=== PATIENT | female | born 1940 | race Caucasian/White ===

== ENCOUNTER 2018-04-27 19:56 | Inpatient (IN) | payer MEDICARE, OTHER ==
[2018-04-27 20:23] LABS: % BASOPHILS 0.5 % (0.0-2.0); % EOSINOPHILS 2.5 % (0.0-5.0); % LYMPHOCYTES 30.4 % (20.0-50.0); % MONOCYTES 6.5 % (2.0-10.0); % NEUTROPHILS 60.1 % (40.0-80.0); EOSINOPHILE ABSOLUTE 0.2 Th/cmm (0.1-0.4); HEMATOCRIT 37.4 % (41.0-60); HEMOGLOBIN 12.6 gm/dL (12-16); LYMPHOCYTE ABSOLUTE 2.6 Th/cmm (1.5-3.0); MEAN CORPUSCULAR HGB CONC 33.7 pg (28.0-36.0); MEAN PLATELET VOLUME 6.3 fl; MONOCYTE ABSOLUTE 0.6 Th/cmm (0.3-1.0); NEUTROPHILE ABSOLUTE 5.1 Th/cmm (1.8-8.0); PLATELET COUNT 256 Th/cmm (150-400); RED CELL DISTRIBUTION WIDTH 14.8 % (11.5-20.0); WHITE BLOOD COUNT 8.5 Th/cmm (4.8-10.8)
--- NOTE | 2018-04-27 20:27 | ED Physician Chart ---
ED Chief Complaint/HPI - Patient Information Date Seen:: 04/27/18 Time Seen:: 20:00 Chief Complaint:: Agitation History of Present Illness:: onset x 3 days of agitation and hallucinations; no report of trauma, H/As, S/T, neck pain, C/P, SOB, Abd. Pain, A/N/V/D/C, fever, chills, SIs, or urinary s/s Allergies:: Allergies Allergy/AdvReac Type Severity Reaction Status Date / Time Penicillins Allergy Verified 04/27/18 20:04 tetracycline Allergy Verified 04/27/18 20:04 Vitals:: Vital Signs - 8 hr 04/27/18 20:00 Temp 97.4 F HR 62 BP 129/61 O2 Sat % 97 Historian:: Patient, EMS Review:: Nurse's Note Reviewed, Old Chart Reviewed, EMS run form Reviewed ED Review of Systems - Review of Systems General/Constitutional: No fever, No chills, No weight loss, No weakness, No diaphoresis, No edema, No loss of appetite Skin: No skin lesions, No rash, No bruising Head: No headache, No light-headedness Eyes: No loss of vision, No pain, No diplopia ENT: No earache, No nasal drainage, No sore throat, No tinnitus Neck: No neck pain, No swelling, No thyromegaly, No stiffness, No mass noted Cardio Vascular: No chest pain, No palpitations, No PND, No orthopnea, No edema Pulmonary: No SOB, No cough, No sputum, No wheezing GI: No nausea, No vomiting, No diarrhea, No pain, No melena, No hematochezia, No constipation, No hematemesis G/U: No dysuria, No frequency, No hematuria, No 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, No abnormal vaginal bleed, No contraction Musculoskeletal: No bone or joint pain, No back pain, No muscle pain Endocrine: No polyuria, No polydipsia Psychiatric: Prior psych history, No depression, Anxiety, No suicidal ideation, No homicidal ideation, Auditory hallucination, No visual hallucination Hematopoietic: No bruising, No lymphadenopathy Allergic/Immuno: No urticaria, No angioedema Neurological: No syncope, No focal symptoms, No weakness, No paresthesia, No headache, No seizure, No dizziness, No confusion, No vertigo ED Past Medical History - Past Medical History Obtainable: Yes Past Medical History: HTN, Dyslipidemia, Dementia Family History: HTN Social History: Non Smoker, No Alcohol, No Drug Use, Single, Care Facility Surgical History: None Psychiatricy History: Schizophrenia, Bipolar, Dementia Medication: Reviewed Family Medical History - Family Member Mother History Unknown: Yes ED Physical Exam - Physical Examination General/Constitutional: Awake, Well-developed, well-nourished, Alert, No distress, GCS 15, Non-toxic appearing, Ambulatory Head: Atraumatic Eyes: Lids, conjuctiva normal, PERRL, EOMI Skin: Nl inspection, No rash, No skin lesions, No ecchymosis, Well hydrated, No lymphadenopathy ENMT: External ears, nose nl, TM canals nl, Nasal exam nl, Lips, teeth, gums nl , Oropharynx nl, Tonsils nl Neck: Nontender, Full ROM w/o pain, No JVD, No nuchal rigidity, No bruit, No mass, No stridor Other Neck comments:: supple; no meningeal signs Respiratory: Nl effort/Exclusion, Clear to Auscultation, No Wheeze/Rhonchi/Rales Cardio Vascular: RRR, No murmur, gallop, rubs, NL S1 S2, Carotid/Femoral/Distal pulses equal bilaterally GI: No tenderness/rebounding/guarding, No organomegaly, No hernia, Normal BS's, Nondistended, No mass/bruits, No McBurney tenderness Other GI comments:: no pulsatile masses : No CVA tenderness Extremities: No tenderness or effusion, Full ROM, normal strength in all extremities, No edema, Normal digits & nails Neuro/Psych: Alert/oriented, DTR's symmetric, Normal sensory exam, Normal motor strength, Judgement/insight normal, Mood normal, Normal gait, No focal deficits Other Neuro/Psych comments:: + Psychomotor Agitation; no SIs; + Auditory Hallucinations; Mood/Affect: Labile Misc: Normal back, No paraspinal tenderness ED Labs/Radiology/EKG Results - Lab Results Comments:: unremarkable - EKG Interpretations EKG Time:: 20:25 Rate & Rhythm: 60; NSR Comments:: non-specific st-t changes ED Septic Shock - . Is Septic Shock (SBP<90, OR Lactate>4 mmol\L) present?: No - <6hrs of presentation: Vital Signs: Vital Signs - 8 hr 04/27/18 20:00 Temp 97.4 F HR 62 BP 129/61 O2 Sat % 97 ED Reassessment (Disposition) - Reassessment Reassessment Condition:: Improved - Diagnosis Diagnosis:: Dx: Hyperglycemia; DM; Hyponatremia; Medical Clearance; Psychosis; Hallucinations; Agitation; Schizo-Affective Disorder; Bipolar Disorder - Aftercare/Follow up Instructions Aftercare/Follow-Up Instructions:: Counseled pt regarding lab results/diagnosis & need follow up, Counseled pt & family regarding lab results/diagnosis & need follow up - Patient Disposition Discharge/Transfer:: Acute Care w/in this hosp Admitted to:: [facility] Condition at Disposition:: Stable, Improved
[2018-04-27 20:40] LABS: ACETAMINOPHEN < 10.0 ug/mL (10.0-30.0); ALB/GLOB RATIO 0.8 (1.0-1.8); ALBUMIN 3.4 gm/dL (3.7-5.3); ALKALINE PHOSPHATASE 79 U/L (34-104); ANION GAP 12.5 (7.0-16.0); BILIRUBIN,TOTAL 0.4 mg/dL (0.3-1.0); BUN - UREA NITROGEN 34 mg/dL (7-25); CALCIUM SERUM 9.5 mg/dL (8.6-10.3); CARBON DIOXIDE 25.2 mEq/L (21.0-31.0); CHLORIDE 102 mEq/L (98-107); CHOLESTEROL 129 mg/dL (<200); CREATININE - SERUM 1.4 mg/dL (0.6-1.2); GLUCOSE 229 mg/dL (70-105); HDL -HIGH DENSITY LIPOPROTEIN 28 mg/dL (23-92); POTASSIUM SERUM 4.7 mEq/L (3.5-5.1); SALICYLATES (ASPIRIN) < 25.0 mg/L (30.0-100.0); SGOT 24 U/L (13-39); SGPT/ALT 24 U/L (7-52); SODIUM SERUM 135 mEq/L (136-145); TOTAL PROTEIN,SERUM 7.7 gm/dL (6.0-8.3); TRIGLYCERIDES 216 mg/dL (<150)
[2018-04-27 21:41] VITALS: BP 152/68
[2018-04-27] MEDS ORDERED: Magnesium Hydroxide (MOM) 30 mL UDC PO PRN (22:38)
[2018-04-27] MEDS ORDERED: Guaifenesin DM 10 ML UDC PO PRN (22:38)
[2018-04-27] MEDS ORDERED: Hydrocodone/APAP 5mg/325mg Tab PO PRN (22:38)
[2018-04-28] MEDS: INSULIN ASPART SLIDING SCALE 100 UNITS/ML UNIT SUBQ SCH ×4 (06:36→21:22)
[2018-04-28] MEDS: Pantoprazole 40 mg EC Tab PO SCH (06:46)
[2018-04-28] MEDS ORDERED: Pantoprazole 40 mg EC Tab PO SCH (09:00)
--- NOTE | 2018-04-28 09:19 | History and Physical ---
History of Present Illness - HPI Chief Complaint: Increased in agitation HPI: Patient was send from SNF for evaluation due to Increased in agitation. 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) GI: Report: No Pertinent Hx Psych: Report: Schizophrenia Musculoskeletal: Report: Muscle Atrophy, Weakness, Other (Patient not ambulatory ) Rheumatologic: Report: No pertinent Hx Infectious Disease: Report: No Pertinent Hx Renal/: Report: No Pertinent Hx Endocrine: Report: Diabetes Dermatology: Report: No Pertinent Hx - Past Surgical History Past Surgical History: CABG, Other (Hip surgery) Family Medical History - Family Member Mother History Unknown: Yes Ethnicity: Unknown Living Status: Unknown Social History Smoke: No Alcohol: None Drugs: None Lives: Alf Domestic Violence: Negative - Medications Home Medications: Home Medication Medication Instructions Recorded Type Acetaminophen [Tylenol] 650 mg PO Q6HR PRN 04/27/18 History Aspirin [Aspirin Chewable] 81 mg PO DAILY 04/27/18 History Bisacodyl [Dulcolax 10 Mg Supp] 10 mg RC DAILY PRN 04/27/18 History Clopidogrel [Plavix] 75 mg PO DAILY 04/27/18 History Dextran 70/Hypromellose 1 drop EACH EYE BID 04/27/18 History [Artificial Tears Eye Drops] Docusate Sodium [Colace] 100 mg PO BID 04/27/18 History Escitalopram Oxalate [Lexapro] 10 mg PO DAILY 04/27/18 History Gabapentin [Neurontin*] 300 mg PO DAILY 04/27/18 History Glipizide [Glucotrol] 5 mg PO BID 04/27/18 History Guaifenesin DM [Robitussin DM] 10 ml PO Q4HR PRN 04/27/18 History Hydrocodone/Acetaminophen [[place] 1 tab PO Q4HR PRN 04/27/18 History 325 mg-5 mg*] Insulin Aspart Sliding Scale See Protocol SUBQ ACHS 04/27/18 History [NovoLOG INSULIN SLIDING SCALE] Insulin Glargine, Recombinan 20 unit SQ Q12HR 04/27/18 History [Lantus] Magnesium Hydroxide [Milk of 30 ml PO DAILY PRN 04/27/18 History Magnesia] Metoprolol Tartrate 25 mg PO Q12HR 04/27/18 History Multivitamin w/ Minerals 1 tab PO DAILY 04/27/18 History [Theragran M] Nitroglycerin [Nitro-Dur] 1 each TD DAILY 04/27/18 History Nitroglycerin [Nitrostat] 0.4 mg SL Q5MIN PRN 04/27/18 History Pantoprazole [Protonix] 40 mg PO DAILY 04/27/18 History Ramelteon [Rozerem] 8 mg PO HS 04/27/18 History Simvastatin [Zocor*] 20 mg PO HS 04/27/18 History busPIRone [Buspar] 5 mg PO TID 04/27/18 History - Allergies Allergies/Adverse Reactions: Allergies Allergy/AdvReac Type Severity Reaction Status Date / Time Penicillins Allergy Verified 04/27/18 20:04 tetracycline Allergy Verified 04/27/18 20:04 Review of Systems - Review of Systems Constitutional: Report: No Significant Eyes: Report: No Significant ENT: Report: No Significant Respiratory: Report: No Significant Cardiovascular: Report: No Significant Gastrointestinal: Report: No Significant Genitourinary: Report: No Significant Skin: Report: No Significant Neurological: Report: Weakness Physical Exam - Physical Exam HEENT: Report: Ears Nose Throat within normal limits Neck: Report: Within normal limits Cardiovascular Systems: Report: Regular, Rate and Rhythm Respiratory: Report: Breath Sounds are within normal limits Abdomen: Report: Non-tender to palpation Back: Report: Inspection of back is within normal limits. Extremities: Report: Non-tender to palpation., Other (Muscle weakness, non ambulatory) Skin: Report: Color of skin is within normal limits Neuro/Psych: Report: Disoriented to name time or place, Depressed affect - Lab Results All Lab Results last 24 hours: Laboratory Results - last 24 hr 04/27/18 04/27/18 04/27/18 20:18 20:18 20:18 WBC 8.5 RBC 4.20 Hgb 12.6 Hct 37.4 L MCV 89.0 MCH 30.0 MCHC Differential 33.7 RDW 14.8 Plt Count 256 MPV 6.3 Neutrophils % 60.1 Lymphocytes % 30.4 Monocytes % 6.5 Eosinophils % 2.5 Basophils % 0.5 Sodium 135 L Potassium 4.7 Chloride 102 Carbon Dioxide 25.2 Anion Gap 12.5 BUN 34 H Creatinine 1.4 H Est GFR ( Amer) TNP Est GFR (Non-Af Amer) TNP BUN/Creatinine Ratio 24.3 Glucose 229 H Calcium 9.5 Total Bilirubin 0.4 AST 24 ALT 24 Alkaline Phosphatase 79 Troponin I Total Protein 7.7 Albumin 3.4 L Globulin 4.3 Albumin/Globulin Ratio 0.8 L Triglycerides 216 H Cholesterol 129 LDL Cholesterol Direct 32 L HDL Cholesterol 28 TSH 2.50 Salicylates < 25.0 L Acetaminophen < 10.0 L Ethyl Alcohol < 10 04/27/18 20:18 WBC RBC Hgb Hct MCV MCH MCHC Differential RDW Plt Count MPV Neutrophils % Lymphocytes % Monocytes % Eosinophils % Basophils % Sodium Potassium Chloride Carbon Dioxide Anion Gap BUN Creatinine Est GFR ( Amer) Est GFR (Non-Af Amer) BUN/Creatinine Ratio Glucose Calcium Total Bilirubin AST ALT Alkaline Phosphatase Troponin I < 0.01 L Total Protein Albumin Globulin Albumin/Globulin Ratio Triglycerides Cholesterol LDL Cholesterol Direct HDL Cholesterol TSH Salicylates Acetaminophen Ethyl Alcohol - Assessment Assessment: Patient is awake, alert, calm, in no acute distress. Dx: increased in agitation DM, HTN, Dislipemia, Dementia, Schizophenia. - Plan Plan: Patient under psychiatry care, continue with SNF meds. Will continue to monitor.
[2018-04-28] MEDS: Multivitamin w/ Minerals Tab PO SCH (10:07)
[2018-04-28] MEDS: Insulin Detemir 100 units/mL 10mL Vial SUBQ SCH ×2 (11:27→22:11)
[2018-04-28] MEDS: Aspirin 81mg Chewable Tab PO SCH (11:31)
[2018-04-28] MEDS: Polyvinyl Alcohol Ophth Soln 15 mL Bottle EACH EYE SCH (11:31)
[2018-04-28] MEDS: Nitroglycerin 0.1 mg/hr Tdm TD SCH (11:48)
[2018-04-28 17:32] LABS: A1C % 7.4 % (4.0-6.0)
[2018-04-28] MEDS ORDERED: RAMELTEON 8 MG PO SCH (21:00)
--- NOTE | 2018-04-29 02:31 | Psychosocial Evaluation ---
DATE OF SERVICE: 04/28/2018 IDENTIFYING DATA: The patient is a 77-year-old woman, resident of [facility] in [place]. Information obtained by directly interviewing the patient as well as reviewing the admission papers and they are reliable. JUSTIFICATION FOR HOSPITALIZATION: The patient is admitted here on a voluntary basis in view of her depression and agitation. CHIEF COMPLAINT: "I need some help." HISTORY OF PRESENT ILLNESS: This is the first psychiatric hospitalization to the [facility] for this 77-year-old, who is reported to have been feeling depressed and is being treated with the Lexapro on an outpatient basis. The patient is reported to have been getting easily agitated and aggressive and hence the patient could not be contained at a lower level of care and hence the patient has been transferred over here for further stabilization. PAST PSYCHIATRIC HISTORY: The patient denies any prior psychiatric hospitalization. MEDICAL HISTORY: Physical examination is requested by Dr. Crump and is noted to be significant for patient having high blood pressure and diabetes mellitus and the patient has a history of coronary artery bypass surgery. ALLERGIES: No allergies to medications are noted. SOCIAL HISTORY: The patient is a resident of the [facility]. SUBSTANCE ABUSE HISTORY: None. PHYSICAL OR SEXUAL ABUSE HISTORY: None. LEGAL PROBLEMS: None at this time. STRENGTH AND ASSETS: The patient is motivated. MENTAL STATUS EXAMINATION: The patient is a 77-year-old woman looking her stated age, superficially cooperative. Eye contact is poor. Mood is noted to be irritable. Affect is constricted. Insight and judgment at this time are noted to be still impaired. Impulse control is noted to be limited. Coping skills are noted to be limited. The patient has been having difficult time to cope with the stress. The patient has been stay downplaying her agitated behavior. The patient states that she could not remember. The patient's short term memory is noted to be poor. Long-term memory seems to be fair. The patient is stating that she has supportive family and she has been trying to reach them. The patient is denying any auditory hallucinations. No delusions are noted at this time. DIAGNOSTIC IMPRESSION: AXIS I: Major depressive disorder, recurrent and moderate. AXIS II: None. AXIS III: As per Dr. Crump. IMMEDIATE TREATMENT PLAN: The patient is going to be continued on the buspirone and Lexapro and the patient is going to be followed up. Once stabilized, the patient is going to be discharged to self to be followed up on an outpatient basis. JOB# [id number]
[2018-04-29] MEDS: INSULIN ASPART SLIDING SCALE 100 UNITS/ML UNIT SUBQ SCH ×4 (06:43→21:58)
[2018-04-29] MEDS: Pantoprazole 40 mg EC Tab PO SCH (06:51)
--- NOTE | 2018-04-29 08:28 | General Progress Note ---
Subjective - Review of Systems Service Date: 04/29/18 Subjective: I am fine Objective - Results Result Diagrams: 04/27/18 20:18 04/27/18 20:18 Recent Labs: Laboratory Last Values WBC 8.5 Th/cmm (4.8-10.8) 04/27/18 20:18 RBC 4.20 Mil/cmm (3.80-5.20) 04/27/18 20:18 Hgb 12.6 gm/dL (12-16) 04/27/18 20:18 Hct 37.4 % (41.0-60) L 04/27/18 20:18 MCV 89.0 fl (81-100) 04/27/18 20:18 MCH 30.0 pg (27.0-31.0) 04/27/18 20: MCHC Differential 33.7 pg (28.0-36.0) 04/27/18 20:18 RDW 14.8 % (11.5-20.0) 04/27/18 20:18 Plt Count 256 Th/cmm (150-400) 04/27/18 20:18 MPV 6.3 fl 04/27/18 20:18 Neutrophils % 60.1 % (40.0-80.0) 04/27/18 20:18 Lymphocytes % 30.4 % (20.0-50.0) 04/27/18 20:18 Monocytes % 6.5 % (2.0-10.0) 04/27/18 20:18 Eosinophils % 2.5 % (0.0-5.0) 04/27/18 20:18 Basophils % 0.5 % (0.0-2.0) 04/27/18 20:18 Sodium 135 mEq/L (136-145) L 04/27/18 20:18 Potassium 4.7 mEq/L (3.5-5.1) 04/27/18 20:18 Chloride 102 mEq/L (98-107) 04/27/18 20:18 Carbon Dioxide 25.2 mEq/L (21.0-31.0) 04/27/18 20:18 Anion Gap 12.5 (7.0-16.0) 04/27/18 20:18 BUN 34 mg/dL (7-25) H 04/27/18 20:18 Creatinine 1.4 mg/dL (0.6-1.2) H 04/27/18 20:18 Est GFR ( Amer) TNP 04/27/18 20:18 Est GFR (Non-Af Amer) TNP 04/27/18 20:18 BUN/Creatinine Ratio 24.3 04/27/18 20:18 Glucose 229 mg/dL (70-105) H 04/27/18 20:18 POC Glucose 52 MG/DL (70 - 105) L 04/29/18 07:10 Hemoglobin A1c % 7.4 % (4.0-6.0) H 04/27/18 20:18 Calcium 9.5 mg/dL (8.6-10.3) 04/27/18 20:18 Total Bilirubin 0.4 mg/dL (0.3-1.0) 04/27/18 20:18 AST 24 U/L (13-39) 04/27/18 20:18 ALT 24 U/L (7-52) 04/27/18 20:18 Alkaline Phosphatase 79 U/L (34-104) 04/27/18 20:18 Troponin I < 0.01 ng/mL (0.01-0.05) L 04/27/18 20:18 Total Protein 7.7 gm/dL (6.0-8.3) 04/27/18 20:18 Albumin 3.4 gm/dL (3.7-5.3) L 04/27/18 20:18 Globulin 4.3 gm/dL 04/27/18 20:18 Albumin/Globulin Ratio 0.8 (1.0-1.8) L 04/27/18 20:18 Triglycerides 216 mg/dL (<150) H 04/27/18 20:18 Cholesterol 129 mg/dL (<200) 04/27/18 20:18 LDL Cholesterol Direct 32 mg/dL (75-193) L 04/27/18 20:18 HDL Cholesterol 28 mg/dL (23-92) 04/27/18 20:18 TSH 2.50 uIU/ml (0.34-5.60) 04/27/18 20:18 Salicylates < 25.0 mg/L (30.0-100.0) L 04/27/18 20:18 Acetaminophen < 10.0 ug/mL (10.0-30.0) L 04/27/18 20:18 Ethyl Alcohol < 10 mg/dL (0-10) 04/27/18 20:18 RPR NONREACTIVE (NONREACTIVE) 04/27/18 20:18 - Physical Exam Vitals and I&O: Vital Signs Temp 97.8 F 04/29/18 04:45 Pulse 70 04/29/18 04:45 Resp 19 04/29/18 04:45 BP 128/73 04/29/18 04:45 Pulse Ox 84 04/29/18 04:45 Intake & Output 04/28/18 04/29/18 04/29/18 18:59 06:59 18:59 Intake Total 0 480 Balance 0 480 Intake: Oral 0 480 Other: # Voids 2 2 # Bowel Movements 0 Stool Characteristics Formed Active Medications: Current Medications Acetaminophen (Tylenol) 650 mg PO Q6HR PRN PRN Reason: Pain or Fever >101 Stop: 06/26/18 22:37 Acetaminophen/Hydrocodone Bitart ([place] 5mg/325mg) 1 tab PO Q4HR PRN PRN Reason: Pain (Severe) Stop: 06/26/18 22:37 Artificial Tears (Artificial Tears Ophth Soln) 1 drop EACH EYE BID [facility] Stop: 06/27/18 08:59 Last Admin: 04/28/18 11:31 Dose: 1 drop Aspirin (Aspirin Chewable) 81 mg PO DAILY [facility] Stop: 06/27/18 08:59 Last Admin: 04/28/18 11:31 Dose: 81 mg Bisacodyl (Dulcolax 10 Mg Supp) 10 mg RC DAILY PRN PRN Reason: Constipation Stop: 06/26/18 22:37 Buspirone HCl (Buspar) 5 mg PO TID [facility]; Protocol Stop: 06/27/18 08:59 Last Admin: 04/28/18 21:15 Dose: 5 mg Clopidogrel Bisulfate (Plavix) 75 mg PO DAILY [facility] Stop: 06/27/18 08:59 Last Admin: 04/28/18 10:08 Dose: 75 mg Docusate Sodium (Colace) 100 mg PO BID [facility] Stop: 06/27/18 08:59 Last Admin: 04/28/18 10:07 Dose: 100 mg Escitalopram Oxalate (Lexapro) 10 mg PO DAILY [facility]; Protocol Stop: 06/27/18 08:59 Last Admin: 04/28/18 10:07 Dose: 10 mg Gabapentin (Neurontin) 300 mg PO DAILY [facility] Stop: 06/27/18 08:59 Last Admin: 04/28/18 10:07 Dose: 300 mg Glipizide (Glucotrol) 5 mg PO BID [facility] Stop: 06/27/18 08:59 Last Admin: 04/28/18 18:05 Dose: 5 mg Guaifenesin/Dextromethorphan (Robitussin Dm) 10 ml PO Q4HR PRN PRN Reason: Cough Stop: 06/26/18 22:37 Insulin Aspart (Novolog Insulin Sliding Scale) 0 units SUBQ ACHS [facility]; Protocol Stop: 06/27/18 07:29 Last Admin: 04/29/18 06:43 Dose: Not Given Insulin Detemir (Levemir Insulin) 20 units SUBQ Q12HR [facility] Stop: 06/27/18 08:59 Last Admin: 04/28/18 22:11 Dose: Not Given Lorazepam (Ativan) 0.5 mg PO Q4HR PRN; Protocol PRN Reason: Anxiety/agitation Stop: 05/28/18 00:04 Magnesium Hydroxide (Milk Of Magnesia) 30 ml PO DAILY PRN PRN Reason: Constipation Stop: 06/26/18 22:37 Metoprolol Tartrate (Lopressor) 25 mg PO Q12HR [facility] Stop: 06/27/18 08:59 Last Admin: 04/28/18 21:13 Dose: 25 mg Miscellaneous (Ramelteon [Rozerem]) 8 mg PO HS [facility] Stop: 06/27/18 20:59 Nitroglycerin (Nitrostat) 0.4 mg SL Q5MIN PRN PRN Reason: Chest Pain Stop: 06/26/18 22:37 Nitroglycerin (Transderm-Nitro) 1 patch TD DAILY [facility] Stop: 06/27/18 08:59 Last Admin: 04/28/18 11:48 Dose: Not Given Pantoprazole Sodium (Protonix) 40 mg PO QDAC [facility] Stop: 06/27/18 07:29 Last Admin: 04/29/18 06:51 Dose: 40 mg Simvastatin (Zocor) 20 mg PO [facility]; Protocol Stop: 06/27/18 20:59 Last Admin: 04/28/18 21:13 Dose: 20 mg Zolpidem Tartrate (Ambien) 5 mg PO HS PRN PRN Reason: Insomnia Stop: 06/26/18 22:28 General: Alert, No acute distress HEENT: Atraumatic Neck: Supple Cardiovascular: Regular rate Lungs: Clear to auscultation Abdomen: Bowel sounds, Soft Extremities: Other (No edema) Neurological: Other (Non ambulatory) Skin: Other (Warm and dry) Psych/Mental Status: Other (Calm, confused, not oriented) Assessment/Plan - Assessment Assessment: Patient is awake, alert, calm, in no acute distress. Dx: increased in agitation DM, CKD, HTN, Dislipemia, Dementia, Schizophenia. - Plan Plan: Patient under psychiatry care, continue with SNF meds. Will continue to monitor. Nutritional Asmnt/Malnutr-PDOC - Dietary Evaluation Malnutrition Findings (Please click <Entered> for more info): Nutritional Asmnt/Malnutrition Start: 04/28/18 15: 10 Text: Status: Complete Freq: Protocol: Document 04/28/18 15:14 [id number] (Rec: 04/28/18 15:42 TATUM [id number]) Nutritional Asmnt/Malnutrition Patient General Information Nutritional Screening High Risk Diagnosis psychosis Pertinent Medical Hx/Surgical Hx CAD, CHF, HTN, dementia, schizophrenia, DM, muscle atrophy, weakness Subjective Information BS 229 at admission noted. Per nurse, pt consumed about 80% of lunch today. Current Diet Order/ Nutrition Support CCHO, low sodium, mech chopped Pertinent Medications colace, glucotrol, novolog, levemir, protonix Pertinent Labs 04/27 Na 135, BUN 34, Cr 1.4, glucose 229 Nutritional Hx/Data Height 1.78 m Height (Calculated Centimeters) 177.8 Current Weight (lbs) 112.037 kg Weight (Calculated Kilograms) 112.0 Weight (Calculated Grams) 383916.3 [place] Body Weight 150 Body Mass Index (BMI) 35.4 Weight Status Obese GI Symptoms GI Symptoms None Last BM none Difficult in: None Skin Integrity/Comment: intact Estimated Nutritional Goals BEE in Kcals: Adj wt of IBW Calories/Kcals/Kg 23-27 Kcals Calculated [id number] Protein: Adj wt of IBW Protein g/k Protein Calculated 79 Fluid: ml 1794-2133ml (1ml/kcal) Nutritional Problem 1. Problem Problem altered nutrition related lab Etiology hx of DM Signs/Symptoms: glucose 229 Malnutrition Alert Is there a minimum of two criteria No selected? Query Text:Check all the applicable criteria. A minimum of two criteria are recommended for diagnosis of either severe or non-severe malnutrition. Malnutrition Related to Morbid Obesity Malnutrition related to morbid obesity No Intervention/Recommendation Comments 1. Continue with low sodium [facility] soft chopped diet as ordered. 2. Monitor PO intake, wt, labs and skin integrity 3. F/U as moderate risk in 3-5 days, 05/01-05/03 Expected Outcomes/Goals Expected Outcomes/Goals 1. PO intake to meet at least 75% of nutritional needs. 2. Wt stability, skin to remain intact, labs to approach WNL.
[2018-04-29] MEDS: Aspirin 81mg Chewable Tab PO SCH (09:35)
[2018-04-29] MEDS: Polyvinyl Alcohol Ophth Soln 15 mL Bottle EACH EYE SCH ×2 (09:35→16:32)
[2018-04-29] MEDS: Multivitamin w/ Minerals Tab PO SCH (09:35)
[2018-04-29] MEDS: Nitroglycerin 0.1 mg/hr Tdm TD SCH (09:37)
[2018-04-29] MEDS: Insulin Detemir 100 units/mL 10mL Vial SUBQ SCH ×2 (09:38→21:58)
--- NOTE | 2018-04-30 02:10 | Progress Notes ---
DATE: 04/29/2018 SUBJECTIVE: Staff was spoken to. The patient is interviewed. Mood is noted to be anxious and irritable. Affect is constricted. Coping skills are noted to be poor. The patient is isolated and withdrawn. No side effect to the medications are noted. The patient is still depressed. She is reluctant to participate in any of the groups. ASSESSMENT: The patient is still depressed. PLAN: Continue the patient with Lexapro and follow the patient with supportive therapy. JOB# [id number]
[2018-04-30] MEDS: Pantoprazole 40 mg EC Tab PO SCH (06:39)
[2018-04-30] MEDS: Aspirin 81mg Chewable Tab PO SCH (09:04)
[2018-04-30] MEDS: Multivitamin w/ Minerals Tab PO SCH (09:05)
[2018-04-30] MEDS: Insulin Detemir 100 units/mL 10mL Vial SUBQ SCH ×2 (09:25→20:57)
[2018-04-30] MEDS: INSULIN ASPART SLIDING SCALE 100 UNITS/ML UNIT SUBQ SCH ×4 (09:36→20:55)
[2018-04-30] MEDS: Polyvinyl Alcohol Ophth Soln 15 mL Bottle EACH EYE SCH ×2 (09:36→16:24)
[2018-04-30] MEDS: Nitroglycerin 0.1 mg/hr Tdm TD SCH (09:38)
--- NOTE | 2018-04-30 13:46 | Progress Notes ---
DATE: 04/30/2018 SUBJECTIVE: Staff was spoken to. The patient is interviewed. Mood is noted to be irritable. Affect is constricted. Coping skills at this time are noted to be very poor. The patient has been having difficult time to cope with the stress. No side effects to the medications are noted at this time. The patient is getting easily frustrated. The patient is currently on Lexapro 10 mg and has been able to tolerate the medication. Sleep is noted to be poor. Appetite is noted to be fair. ASSESSMENT: The patient is still depressed. PLAN: To continue the patient with the supportive therapy and I encouraged the patient to verbalize the concerns rather than to act out. JOB# [id number]
--- NOTE | 2018-04-30 13:50 | General Progress Note ---
Subjective - Review of Systems Service Date: 04/30/18 Subjective: I am fine Objective - Results Result Diagrams: 04/27/18 20:18 04/27/18 20:18 Recent Labs: Laboratory Last Values WBC 8.5 Th/cmm (4.8-10.8) 04/27/18 20:18 RBC 4.20 Mil/cmm (3.80-5.20) 04/27/18 20:18 Hgb 12.6 gm/dL (12-16) 04/27/18 20:18 Hct 37.4 % (41.0-60) L 04/27/18 20:18 MCV 89.0 fl (81-100) 04/27/18 20:18 MCH 30.0 pg (27.0-31.0) 04/27/18 20: MCHC Differential 33.7 pg (28.0-36.0) 04/27/18 20:18 RDW 14.8 % (11.5-20.0) 04/27/18 20:18 Plt Count 256 Th/cmm (150-400) 04/27/18 20:18 MPV 6.3 fl 04/27/18 20:18 Neutrophils % 60.1 % (40.0-80.0) 04/27/18 20:18 Lymphocytes % 30.4 % (20.0-50.0) 04/27/18 20:18 Monocytes % 6.5 % (2.0-10.0) 04/27/18 20:18 Eosinophils % 2.5 % (0.0-5.0) 04/27/18 20:18 Basophils % 0.5 % (0.0-2.0) 04/27/18 20:18 Sodium 135 mEq/L (136-145) L 04/27/18 20:18 Potassium 4.7 mEq/L (3.5-5.1) 04/27/18 20:18 Chloride 102 mEq/L (98-107) 04/27/18 20:18 Carbon Dioxide 25.2 mEq/L (21.0-31.0) 04/27/18 20:18 Anion Gap 12.5 (7.0-16.0) 04/27/18 20:18 BUN 34 mg/dL (7-25) H 04/27/18 20:18 Creatinine 1.4 mg/dL (0.6-1.2) H 04/27/18 20:18 Est GFR ( Amer) TNP 04/27/18 20:18 Est GFR (Non-Af Amer) TNP 04/27/18 20:18 BUN/Creatinine Ratio 24.3 04/27/18 20:18 Glucose 229 mg/dL (70-105) H 04/27/18 20:18 POC Glucose 202 MG/DL (70 - 105) H 04/30/18 11:18 Hemoglobin A1c % 7.4 % (4.0-6.0) H 04/27/18 20:18 Calcium 9.5 mg/dL (8.6-10.3) 04/27/18 20:18 Total Bilirubin 0.4 mg/dL (0.3-1.0) 04/27/18 20:18 AST 24 U/L (13-39) 04/27/18 20:18 ALT 24 U/L (7-52) 04/27/18 20:18 Alkaline Phosphatase 79 U/L (34-104) 04/27/18 20:18 Troponin I < 0.01 ng/mL (0.01-0.05) L 04/27/18 20:18 Total Protein 7.7 gm/dL (6.0-8.3) 04/27/18 20:18 Albumin 3.4 gm/dL (3.7-5.3) L 04/27/18 20:18 Globulin 4.3 gm/dL 04/27/18 20:18 Albumin/Globulin Ratio 0.8 (1.0-1.8) L 04/27/18 20:18 Triglycerides 216 mg/dL (<150) H 04/27/18 20:18 Cholesterol 129 mg/dL (<200) 04/27/18 20:18 LDL Cholesterol Direct 32 mg/dL (75-193) L 04/27/18 20:18 HDL Cholesterol 28 mg/dL (23-92) 04/27/18 20:18 TSH 2.50 uIU/ml (0.34-5.60) 04/27/18 20:18 Salicylates < 25.0 mg/L (30.0-100.0) L 04/27/18 20:18 Acetaminophen < 10.0 ug/mL (10.0-30.0) L 04/27/18 20:18 Ethyl Alcohol < 10 mg/dL (0-10) 04/27/18 20:18 RPR NONREACTIVE (NONREACTIVE) 04/27/18 20:18 - Physical Exam Vitals and I&O: Vital Signs Temp 98.2 F 04/30/18 04:29 Pulse 60 04/30/18 09:38 Resp 18 04/30/18 04:29 BP 139/61 04/30/18 09:38 Pulse Ox 90 04/30/18 04:29 Intake & Output 04/29/18 04/30/18 04/30/18 18:59 06:59 18:59 Intake Total 480 Balance 480 Intake: Oral 480 Other: # Voids 2 Active Medications: Current Medications Acetaminophen (Tylenol) 650 mg PO Q6HR PRN PRN Reason: Pain or Fever >101 Stop: 06/26/18 22:37 Acetaminophen/Hydrocodone Bitart ([place] 5mg/325mg) 1 tab PO Q4HR PRN PRN Reason: Pain (Severe) Stop: 06/26/18 22:37 Artificial Tears (Artificial Tears Ophth Soln) 1 drop EACH EYE BID [facility] Stop: 06/27/18 08:59 Last Admin: 04/30/18 09:36 Dose: 1 drop Aspirin (Aspirin Chewable) 81 mg PO DAILY [facility] Stop: 06/27/18 08:59 Last Admin: 04/30/18 09:04 Dose: 81 mg Bisacodyl (Dulcolax 10 Mg Supp) 10 mg RC DAILY PRN PRN Reason: Constipation Stop: 06/26/18 22:37 Buspirone HCl (Buspar) 5 mg PO TID [facility]; Protocol Stop: 06/27/18 08:59 Last Admin: 04/30/18 13:10 Dose: 5 mg Clopidogrel Bisulfate (Plavix) 75 mg PO DAILY [facility] Stop: 06/27/18 08:59 Last Admin: 04/30/18 09:04 Dose: 75 mg Docusate Sodium (Colace) 100 mg PO BID [facility] Stop: 06/27/18 08:59 Last Admin: 04/30/18 09:04 Dose: 100 mg Escitalopram Oxalate (Lexapro) 10 mg PO DAILY [facility]; Protocol Stop: 06/27/18 08:59 Last Admin: 04/30/18 09:04 Dose: 10 mg Gabapentin (Neurontin) 300 mg PO DAILY [facility] Stop: 06/27/18 08:59 Last Admin: 04/30/18 09:03 Dose: 300 mg Glipizide (Glucotrol) 5 mg PO BID [facility] Stop: 06/27/18 08:59 Last Admin: 04/30/18 09:04 Dose: 5 mg Guaifenesin/Dextromethorphan (Robitussin Dm) 10 ml PO Q4HR PRN PRN Reason: Cough Stop: 06/26/18 22:37 Insulin Aspart (Novolog Insulin Sliding Scale) 0 units SUBQ ACHS [facility]; Protocol Stop: 06/27/18 07:29 Last Admin: 04/30/18 11:30 Dose: 4 units Insulin Detemir (Levemir Insulin) 20 units SUBQ Q12HR [facility] Stop: 06/27/18 08:59 Last Admin: 04/30/18 09:25 Dose: 20 unit Lorazepam (Ativan) 0.5 mg PO Q4HR PRN; Protocol PRN Reason: Anxiety/agitation Stop: 05/28/18 00:04 Magnesium Hydroxide (Milk Of Magnesia) 30 ml PO DAILY PRN PRN Reason: Constipation Stop: 06/26/18 22:37 Metoprolol Tartrate (Lopressor) 25 mg PO Q12HR [facility] Stop: 06/27/18 08:59 Last Admin: 04/30/18 09:07 Dose: 25 mg Miscellaneous (Ramelteon [Rozerem]) 8 mg PO HS [facility] Stop: 06/27/18 20:59 Nitroglycerin (Nitrostat) 0.4 mg SL Q5MIN PRN PRN Reason: Chest Pain Stop: 06/26/18 22:37 Nitroglycerin (Transderm-Nitro) 1 patch TD DAILY [facility] Stop: 06/27/18 08:59 Last Admin: 04/30/18 09:38 Dose: 1 patch Pantoprazole Sodium (Protonix) 40 mg PO QDAC [facility] Stop: 06/27/18 07:29 Last Admin: 04/30/18 06:39 Dose: 40 mg Simvastatin (Zocor) 20 mg PO HS [facility]; Protocol Stop: 06/27/18 20:59 Last Admin: 04/29/18 21:57 Dose: 20 mg Zolpidem Tartrate (Ambien) 5 mg PO HS PRN PRN Reason: Insomnia Stop: 06/26/18 22:28 General: Alert, No acute distress HEENT: Atraumatic Neck: Supple Cardiovascular: Regular rate Lungs: Clear to auscultation Abdomen: Bowel sounds, Soft Extremities: Other (No edema) Neurological: Other (Non ambulatory) Skin: Other (Warm and dry) Psych/Mental Status: Other (Calm, confused, not oriented) Assessment/Plan - Assessment Assessment: Patient is awake, alert, calm, in no acute distress. Dx: increased in agitation DM, CKD, HTN, Dislipemia, Dementia, Schizophenia. - Plan Plan: Patient under psychiatry care, continue with SNF meds. Will continue to monitor. Nutritional Asmnt/Malnutr-PDOC - Dietary Evaluation Malnutrition Findings (Please click <Entered> for more info): Nutritional Asmnt/Malnutrition Start: 04/28/18 15: 10 Text: Status: Complete Freq: Protocol: Document 04/28/18 15:14 [email or web address] (Rec: 04/28/18 15:42 [id number] [id number]) Nutritional Asmnt/Malnutrition Patient General Information Nutritional Screening High Risk Diagnosis psychosis Pertinent Medical Hx/Surgical Hx CAD, CHF, HTN, dementia, schizophrenia, DM, muscle atrophy, weakness Subjective Information BS 229 at admission noted. Per nurse, pt consumed about 80% of lunch today. Current Diet Order/ Nutrition Support CCHO, low sodium, mech chopped Pertinent Medications colace, glucotrol, novolog, levemir, protonix Pertinent Labs 04/27 Na 135, BUN 34, Cr 1.4, glucose 229 Nutritional Hx/Data Height 1.78 m Height (Calculated Centimeters) 177.8 Current Weight (lbs) 112.037 kg Weight (Calculated Kilograms) 112.0 Weight (Calculated Grams) 264388.3 [place] Body Weight 150 Body Mass Index (BMI) 35.4 Weight Status Obese GI Symptoms GI Symptoms None Last BM none Difficult in: None Skin Integrity/Comment: intact Estimated Nutritional Goals BEE in Kcals: Adj wt of IBW Calories/Kcals/Kg 23-27 Kcals Calculated 5427-0324 Protein: Adj wt of IBW Protein g/k Protein Calculated 79 Fluid: ml 1794-2133ml (1ml/kcal) Nutritional Problem 1. Problem Problem altered nutrition related lab Etiology hx of DM Signs/Symptoms: glucose 229 Malnutrition Alert Is there a minimum of two criteria No selected? Query Text:Check all the applicable criteria. A minimum of two criteria are recommended for diagnosis of either severe or non-severe malnutrition. Malnutrition Related to Morbid Obesity Malnutrition related to morbid obesity No Intervention/Recommendation Comments 1. Continue with low sodium [facility] soft chopped diet as ordered. 2. Monitor PO intake, wt, labs and skin integrity 3. F/U as moderate risk in 3-5 days, 05/01-05/03 Expected Outcomes/Goals Expected Outcomes/Goals 1. PO intake to meet at least 75% of nutritional needs. 2. Wt stability, skin to remain intact, labs to approach WNL.
--- NOTE | 2018-05-01 00:25 | Consultation ---
DATE OF CONSULTATION: 04/29/2018 REFERRING PHYSICIAN: Philip Gates M.D. TYPE OF CONSULTATION: Psychology. HISTORY OF PRESENT ILLNESS: The patient is a 77-year-old female. The patient is a resident of [facility] in [place]. The following is by record review and by the patient's self report. The patient is being admitted due to depression as well as agitation. Upon interview, the patient admits that she is depressed and is requesting help. The staff at the patient's facility report that she had been getting easily agitated and aggressive and complained of worsening depression. Therefore she was transferred here for stabilization. The patient denied any suicidal ideation, plan or intention; however, this needs further evaluation. There may be passive suicidal ideation present. PAST MEDICAL HISTORY: Please see history and physical by Dr. Crump. PAST PSYCHIATRIC HISTORY: The patient has no other prior psychiatric hospitalizations. The patient has a history of depression and is being treated by a psychiatrist at her group home facility. The patient had been treated with Lexapro in the past. ALLERGIES: No known drug allergies. SUBSTANCE ABUSE HISTORY: The patient denied any history. PSYCHOSOCIAL HISTORY: The patient did not answer questions about occupational or educational history or restorationist affiliation. The patient denied any history of physical or sexual abuse. The patient denies any current legal problems. The patient offered information about her family relationships and states she has good support and that they are very involved in her care. She is requesting that the staff contact her family. The patient is a resident of [facility] in [place]. The patient wishes to return to her facility. MENTAL STATUS EXAMINATION: The patient appears to be her stated age. The patient's attitude is mostly cooperative. Eye contact is poor. Speech is slow and delayed. Mood is irritable and depressed. Affect is constricted. Thought process shows to be confused. The patient denied any auditory or visual hallucinations. The patient denies any delusions. The patient has been redirectable on the unit according to staff here. The patient has had a few episodes of becoming easily agitated. Impulse control is limited. Concentration is poor. The patient's short term memory is impaired. Long-term memory seems to be fair. The patient's sensorium is alert and oriented to person and place. The patient did not participate in the interpretation of proverbs. The patient requested that her family be contacted and states that she needs her family here. Insight is fair to poor. Judgement is compromised. DIAGNOSTIC IMPRESSION: AXIS I: Major depressive disorder, recurrent, moderate. AXIS II: Deferred. AXIS III: Please see history and physical by Dr. Crump. TREATMENT PLAN: The patient has been seen by Dr. Gates for psychiatric evaluation and for the management of the patient's psychotropic medications. The patient is being continued on Buspirone and Lexapro according to the medical record. We will provide supportive psychotherapy to include coping strategies for phase of life issues. We will provide cognitive behavioral therapy to reduce the patient's depression. We will provide motivational enhancement for the patient to become compliant and stay compliant with all aspects of her care and treatment. We will continue to provide supportive therapy throughout the patient's hospital stay. We will also provide adjustment strategies for the patient to successfully adjust to her long-term care environment. We will encourage the patient to verbalize her concerns versus becoming agitated. We will encourage the patient to increase her ability for emotional and self regulation. Thank you Dr. Gates for this consult and the opportunity to participate with you in this patient's care. JOB# [id number] [email or web address]
[2018-05-01] MEDS: INSULIN ASPART SLIDING SCALE 100 UNITS/ML UNIT SUBQ SCH ×4 (06:33→20:48)
[2018-05-01] MEDS: Pantoprazole 40 mg EC Tab PO SCH (06:33)
[2018-05-01 06:34] LABS: % BASOPHILS 0.6 % (0.0-2.0); % EOSINOPHILS 2.2 % (0.0-5.0); % MONOCYTES 7.5 % (2.0-10.0); % NEUTROPHILS 60.7 % (40.0-80.0); BASOPHILE ABSOLUTE 0.1 Th/cumm (0-0.2); EOSINOPHILE ABSOLUTE 0.2 Th/cmm (0.1-0.4); HEMATOCRIT 37.6 % (41.0-60); HEMOGLOBIN 12.7 gm/dL (12-16); LYMPHOCYTE ABSOLUTE 2.7 Th/cmm (1.5-3.0); MEAN CELL VOLUME 88.3 fl (81-100); MEAN CORPUSCULAR HEMOGLOBIN 29.9 pg (27.0-31.0); MEAN CORPUSCULAR HGB CONC 33.8 pg (28.0-36.0); MEAN PLATELET VOLUME 6.8 fl; MONOCYTE ABSOLUTE 0.7 Th/cmm (0.3-1.0); NEUTROPHILE ABSOLUTE 5.7 Th/cmm (1.8-8.0); PLATELET COUNT 242 Th/cmm (150-400); RED BLOOD COUNT 4.26 Mil/cmm (3.80-5.20); RED CELL DISTRIBUTION WIDTH 14.5 % (11.5-20.0); WHITE BLOOD COUNT 9.4 Th/cmm (4.8-10.8)
[2018-05-01 06:45] LABS: ALB/GLOB RATIO 0.7 (1.0-1.8); ALBUMIN 3.4 gm/dL (3.7-5.3); ALKALINE PHOSPHATASE 74 U/L (34-104); ANION GAP 10.6 (7.0-16.0); BILIRUBIN,TOTAL 0.7 mg/dL (0.3-1.0); BUN - UREA NITROGEN 27 mg/dL (7-25); CARBON DIOXIDE 27.6 mEq/L (21.0-31.0); CHLORIDE 101 mEq/L (98-107); CREATININE - SERUM 1.5 mg/dL (0.6-1.2); GLUCOSE 162 mg/dL (70-105); POTASSIUM SERUM 4.2 mEq/L (3.5-5.1); SGOT 18 U/L (13-39); SGPT/ALT 18 U/L (7-52); SODIUM SERUM 135 mEq/L (136-145); TOTAL PROTEIN,SERUM 8.3 gm/dL (6.0-8.3)
[2018-05-01] MEDS: Multivitamin w/ Minerals Tab PO SCH (08:48)
[2018-05-01] MEDS: Aspirin 81mg Chewable Tab PO SCH (08:48)
[2018-05-01] MEDS: Polyvinyl Alcohol Ophth Soln 15 mL Bottle EACH EYE SCH ×2 (08:48→17:06)
[2018-05-01] MEDS: Insulin Detemir 100 units/mL 10mL Vial SUBQ SCH ×2 (09:52→20:49)
--- NOTE | 2018-05-01 13:27 | General Progress Note ---
Subjective - Review of Systems Service Date: 05/01/18 Subjective: I am fine Objective - Results Result Diagrams: 05/01/18 06:00 05/01/18 06:00 Recent Labs: Laboratory Last Values WBC 9.4 Th/cmm (4.8-10.8) 05/01/18 06:00 RBC 4.26 Mil/cmm (3.80-5.20) 05/01/18 06:00 Hgb 12.7 gm/dL (12-16) 05/01/18 06:00 Hct 37.6 % (41.0-60) L 05/01/18 06:00 MCV 88.3 fl (81-100) 05/01/18 06:00 MCH 29.9 pg (27.0-31.0) 05/01/18 06:00 MCHC Differential 33.8 pg (28.0-36.0) 05/01/18 06:00 RDW 14.5 % (11.5-20.0) 05/01/18 06:00 Plt Count 242 Th/cmm (150-400) 05/01/18 06:00 MPV 6.8 fl 05/01/18 06:00 Neutrophils % 60.7 % (40.0-80.0) 05/01/18 06:00 Lymphocytes % 29.0 % (20.0-50.0) 05/01/18 06:00 Monocytes % 7.5 % (2.0-10.0) 05/01/18 06:00 Eosinophils % 2.2 % (0.0-5.0) 05/01/18 06:00 Basophils % 0.6 % (0.0-2.0) 05/01/18 06:00 Sodium 135 mEq/L (136-145) L 05/01/18 06:00 Potassium 4.2 mEq/L (3.5-5.1) 05/01/18 06:00 Chloride 101 mEq/L (98-107) 05/01/18 06:00 Carbon Dioxide 27.6 mEq/L (21.0-31.0) 05/01/18 06:00 Anion Gap 10.6 (7.0-16.0) 05/01/18 06:00 BUN 27 mg/dL (7-25) H 05/01/18 06:00 Creatinine 1.5 mg/dL (0.6-1.2) H 05/01/18 06:00 Est GFR ( Amer) TNP 05/01/18 06:00 Est GFR (Non-Af Amer) TNP 05/01/18 06:00 BUN/Creatinine Ratio 18.0 05/01/18 06:00 Glucose 162 mg/dL (70-105) H 05/01/18 06:00 POC Glucose 155 MG/DL (70 - 105) H 05/01/18 06:19 Hemoglobin A1c % 7.4 % (4.0-6.0) H 04/27/18 20:18 Calcium 10.0 mg/dL (8.6-10.3) 05/01/18 06:00 Total Bilirubin 0.7 mg/dL (0.3-1.0) 05/01/18 06:00 AST 18 U/L (13-39) 05/01/18 06:00 ALT 18 U/L (7-52) 05/01/18 06:00 Alkaline Phosphatase 74 U/L (34-104) 05/01/18 06:00 Troponin I < 0.01 ng/mL (0.01-0.05) L 04/27/18 20:18 Total Protein 8.3 gm/dL (6.0-8.3) 05/01/18 06:00 Albumin 3.4 gm/dL (3.7-5.3) L 05/01/18 06:00 Globulin 4.9 gm/dL 05/01/18 06:00 Albumin/Globulin Ratio 0.7 (1.0-1.8) L 05/01/18 06:00 Triglycerides 216 mg/dL (<150) H 04/27/18 20:18 Cholesterol 129 mg/dL (<200) 04/27/18 20:18 LDL Cholesterol Direct 32 mg/dL (75-193) L 04/27/18 20:18 HDL Cholesterol 28 mg/dL (23-92) 04/27/18 20:18 TSH 2.50 uIU/ml (0.34-5.60) 04/27/18 20:18 Salicylates < 25.0 mg/L (30.0-100.0) L 04/27/18 20:18 Acetaminophen < 10.0 ug/mL (10.0-30.0) L 04/27/18 20:18 Ethyl Alcohol < 10 mg/dL (0-10) 04/27/18 20:18 RPR NONREACTIVE (NONREACTIVE) 04/27/18 20:18 - Physical Exam Vitals and I&O: Vital Signs Temp 97.3 F 04/30/18 15:48 Pulse 59 04/30/18 20:38 Resp 20 04/30/18 15:48 BP 144/54 04/30/18 20:38 Pulse Ox 98 04/30/18 15:48 Intake & Output 04/30/18 05/01/18 05/01/18 18:59 06:59 18:59 Intake Total 1500 Balance 1500 Intake: Oral 1500 Other: # Voids 4 # Bowel Movements 0 Active Medications: Current Medications Acetaminophen (Tylenol) 650 mg PO Q6HR PRN PRN Reason: Pain or Fever >101 Stop: 06/26/18 22:37 Acetaminophen/Hydrocodone Bitart ([place] 5mg/325mg) 1 tab PO Q4HR PRN PRN Reason: Pain (Severe) Stop: 06/26/18 22:37 Artificial Tears (Artificial Tears Ophth Soln) 1 drop EACH EYE BID [facility] Stop: 06/27/18 08:59 Last Admin: 05/01/18 08:48 Dose: 1 drop Aspirin (Aspirin Chewable) 81 mg PO DAILY [facility] Stop: 06/27/18 08:59 Last Admin: 05/01/18 08:48 Dose: 81 mg Bisacodyl (Dulcolax 10 Mg Supp) 10 mg RC DAILY PRN PRN Reason: Constipation Stop: 06/26/18 22:37 Buspirone HCl (Buspar) 5 mg PO TID [facility]; Protocol Stop: 06/27/18 08:59 Last Admin: 05/01/18 08:48 Dose: 5 mg Clopidogrel Bisulfate (Plavix) 75 mg PO DAILY [facility] Stop: 06/27/18 08:59 Last Admin: 05/01/18 08:48 Dose: 75 mg Docusate Sodium (Colace) 100 mg PO BID [facility] Stop: 06/27/18 08:59 Last Admin: 05/01/18 08:48 Dose: 100 mg Escitalopram Oxalate (Lexapro) 10 mg PO DAILY [facility]; Protocol Stop: 06/27/18 08:59 Last Admin: 05/01/18 08:48 Dose: 10 mg Gabapentin (Neurontin) 300 mg PO DAILY [facility] Stop: 06/27/18 08:59 Last Admin: 05/01/18 08:48 Dose: 300 mg Glipizide (Glucotrol) 5 mg PO BID [facility] Stop: 06/27/18 08:59 Last Admin: 05/01/18 08:48 Dose: 5 mg Guaifenesin/Dextromethorphan (Robitussin Dm) 10 ml PO Q4HR PRN PRN Reason: Cough Stop: 06/26/18 22:37 Insulin Aspart (Novolog Insulin Sliding Scale) 0 units SUBQ ACHS [facility]; Protocol Stop: 06/27/18 07:29 Last Admin: 05/01/18 12:19 Dose: Not Given Insulin Detemir (Levemir Insulin) 20 units SUBQ Q12HR [facility] Stop: 06/27/18 08:59 Last Admin: 05/01/18 09:52 Dose: 20 unit Lorazepam (Ativan) 0.5 mg PO Q4HR PRN; Protocol PRN Reason: Anxiety/agitation Stop: 05/28/18 00:04 Magnesium Hydroxide (Milk Of Magnesia) 30 ml PO DAILY PRN PRN Reason: Constipation Stop: 06/26/18 22:37 Metoprolol Tartrate (Lopressor) 25 mg PO Q12HR [facility] Stop: 06/27/18 08:59 Last Admin: 05/01/18 09:52 Dose: Not Given Miscellaneous (Ramelteon [Rozerem]) 8 mg PO [facility] Stop: 06/27/18 20:59 Mupirocin (Bactroban Oint) 1 appl NS BID [facility] Stop: 05/05/18 09:01 Last Admin: 05/01/18 09:52 Dose: 1 appl Nitroglycerin (Nitrostat) 0.4 mg SL Q5MIN PRN PRN Reason: Chest Pain Stop: 06/26/18 22:37 Nitroglycerin (Transderm-Nitro) 1 patch TD DAILY [facility] Stop: 06/27/18 08:59 Last Admin: 04/30/18 09:38 Dose: 1 patch Pantoprazole Sodium (Protonix) 40 mg PO QDAC [facility] Stop: 06/27/18 07:29 Last Admin: 05/01/18 06:33 Dose: 40 mg Simvastatin (Zocor) 20 mg PO [facility]; Protocol Stop: 06/27/18 20:59 Last Admin: 04/30/18 20:38 Dose: 20 mg Zolpidem Tartrate (Ambien) 5 mg PO HS PRN PRN Reason: Insomnia Stop: 06/26/18 22:28 General: Alert, No acute distress HEENT: Atraumatic Neck: Supple Cardiovascular: Regular rate Lungs: Clear to auscultation Abdomen: Bowel sounds, Soft Extremities: Other (No edema) Neurological: Other (Non ambulatory) Skin: Other (Warm and dry) Psych/Mental Status: Other (Calm, confused, not oriented) Assessment/Plan - Assessment Assessment: Patient is awake, alert, calm, in no acute distress. Creatinine increasing. Dx: increased in agitation DM, CKD, HTN, Dislipemia, Dementia, Schizophenia. - Plan Plan: Patient under psychiatry care, continue with SNF meds. Will increased water intake. Will continue to monitor. Nutritional Asmnt/Malnutr-PDOC - Dietary Evaluation Malnutrition Findings (Please click <Entered> for more info): Nutritional Asmnt/Malnutrition Start: 04/28/18 15: 10 Text: Status: Complete Freq: Protocol: Document 04/28/18 15:14 LCHENG (Rec: 04/28/18 15:42 [email or web address]) Nutritional Asmnt/Malnutrition Patient General Information Nutritional Screening High Risk Diagnosis psychosis Pertinent Medical Hx/Surgical Hx CAD, CHF, HTN, dementia, schizophrenia, DM, muscle atrophy, weakness Subjective Information BS 229 at admission noted. Per nurse, pt consumed about 80% of lunch today. Current Diet Order/ Nutrition Support CCHO, low sodium, mech chopped Pertinent Medications colace, glucotrol, novolog, levemir, protonix Pertinent Labs 04/27 Na 135, BUN 34, Cr 1.4, glucose 229 Nutritional Hx/Data Height 1.78 m Height (Calculated Centimeters) 177.8 Current Weight (lbs) 112.037 kg Weight (Calculated Kilograms) 112.0 Weight (Calculated Grams) 238156.3 [place] Body Weight 150 Body Mass Index (BMI) 35.4 Weight Status Obese GI Symptoms GI Symptoms None Last BM none Difficult in: None Skin Integrity/Comment: intact Estimated Nutritional Goals BEE in Kcals: Adj wt of IBW Calories/Kcals/Kg 23-27 Kcals Calculated 0853-4339 Protein: Adj wt of IBW Protein g/k Protein Calculated 79 Fluid: ml 1794-2133ml (1ml/kcal) Nutritional Problem 1. Problem Problem altered nutrition related lab Etiology hx of DM Signs/Symptoms: glucose 229 Malnutrition Alert Is there a minimum of two criteria No selected? Query Text:Check all the applicable criteria. A minimum of two criteria are recommended for diagnosis of either severe or non-severe malnutrition. Malnutrition Related to Morbid Obesity Malnutrition related to morbid obesity No Intervention/Recommendation Comments 1. Continue with low sodium [facility] soft chopped diet as ordered. 2. Monitor PO intake, wt, labs and skin integrity 3. F/U as moderate risk in 3-5 days, 05/01-05/03 Expected Outcomes/Goals Expected Outcomes/Goals 1. PO intake to meet at least 75% of nutritional needs. 2. Wt stability, skin to remain intact, labs to approach WNL.
[2018-05-01] MEDS: Nitroglycerin 0.1 mg/hr Tdm TD SCH (14:30)
--- NOTE | 2018-05-01 18:04 | Progress Notes ---
DATE: 05/01/2018 PSYCHIATRIC PROGRESS NOTE SUBJECTIVE: Staff was spoken to. The patient is interviewed. Mood is noted to be anxious. The patient is isolative and withdrawn. Insight and judgment at this time are noted to be improving. Impulse control seems to be getting a little bit better. The patient is currently on the Lexapro 10 mg and has been able to tolerate the medications. No side effects to the medications are noted. ASSESSMENT: The patient is still depressed and coping skills are noted to be poor. PLAN: To continue the patient with the supportive therapy and followup. JOB# [id number]
[2018-05-02] MEDS: INSULIN ASPART SLIDING SCALE 100 UNITS/ML UNIT SUBQ SCH ×4 (06:50→21:06)
[2018-05-02] MEDS: Pantoprazole 40 mg EC Tab PO SCH (06:55)
[2018-05-02] MEDS: Nitroglycerin 0.1 mg/hr Tdm TD SCH (08:43)
[2018-05-02] MEDS: Multivitamin w/ Minerals Tab PO SCH (08:44)
[2018-05-02] MEDS: Aspirin 81mg Chewable Tab PO SCH (08:44)
[2018-05-02] MEDS: Insulin Detemir 100 units/mL 10mL Vial SUBQ SCH ×2 (08:45→21:07)
[2018-05-02] MEDS: Polyvinyl Alcohol Ophth Soln 15 mL Bottle EACH EYE SCH ×2 (08:45→17:08)
--- NOTE | 2018-05-02 13:14 | General Progress Note ---
Subjective - Review of Systems Service Date: 05/02/18 Subjective: I am fine Objective - Results Result Diagrams: 05/01/18 06:00 05/01/18 06:00 Recent Labs: Laboratory Last Values WBC 9.4 Th/cmm (4.8-10.8) 05/01/18 06:00 RBC 4.26 Mil/cmm (3.80-5.20) 05/01/18 06:00 Hgb 12.7 gm/dL (12-16) 05/01/18 06:00 Hct 37.6 % (41.0-60) L 05/01/18 06:00 MCV 88.3 fl (81-100) 05/01/18 06:00 MCH 29.9 pg (27.0-31.0) 05/01/18 06:00 MCHC Differential 33.8 pg (28.0-36.0) 05/01/18 06:00 RDW 14.5 % (11.5-20.0) 05/01/18 06:00 Plt Count 242 Th/cmm (150-400) 05/01/18 06:00 MPV 6.8 fl 05/01/18 06:00 Neutrophils % 60.7 % (40.0-80.0) 05/01/18 06:00 Lymphocytes % 29.0 % (20.0-50.0) 05/01/18 06:00 Monocytes % 7.5 % (2.0-10.0) 05/01/18 06:00 Eosinophils % 2.2 % (0.0-5.0) 05/01/18 06:00 Basophils % 0.6 % (0.0-2.0) 05/01/18 06:00 Sodium 135 mEq/L (136-145) L 05/01/18 06:00 Potassium 4.2 mEq/L (3.5-5.1) 05/01/18 06:00 Chloride 101 mEq/L (98-107) 05/01/18 06:00 Carbon Dioxide 27.6 mEq/L (21.0-31.0) 05/01/18 06:00 Anion Gap 10.6 (7.0-16.0) 05/01/18 06:00 BUN 27 mg/dL (7-25) H 05/01/18 06:00 Creatinine 1.5 mg/dL (0.6-1.2) H 05/01/18 06:00 Est GFR ( Amer) TNP 05/01/18 06:00 Est GFR (Non-Af Amer) TNP 05/01/18 06:00 BUN/Creatinine Ratio 18.0 05/01/18 06:00 Glucose 162 mg/dL (70-105) H 05/01/18 06:00 POC Glucose 175 MG/DL (70 - 105) H 05/02/18 11:50 Hemoglobin A1c % 7.4 % (4.0-6.0) H 04/27/18 20:18 Calcium 10.0 mg/dL (8.6-10.3) 05/01/18 06:00 Total Bilirubin 0.7 mg/dL (0.3-1.0) 05/01/18 06:00 AST 18 U/L (13-39) 05/01/18 06:00 ALT 18 U/L (7-52) 05/01/18 06:00 Alkaline Phosphatase 74 U/L (34-104) 05/01/18 06:00 Troponin I < 0.01 ng/mL (0.01-0.05) L 04/27/18 20:18 Total Protein 8.3 gm/dL (6.0-8.3) 05/01/18 06:00 Albumin 3.4 gm/dL (3.7-5.3) L 05/01/18 06:00 Globulin 4.9 gm/dL 05/01/18 06:00 Albumin/Globulin Ratio 0.7 (1.0-1.8) L 05/01/18 06:00 Triglycerides 216 mg/dL (<150) H 04/27/18 20:18 Cholesterol 129 mg/dL (<200) 04/27/18 20:18 LDL Cholesterol Direct 32 mg/dL (75-193) L 04/27/18 20:18 HDL Cholesterol 28 mg/dL (23-92) 04/27/18 20:18 TSH 2.50 uIU/ml (0.34-5.60) 04/27/18 20:18 Salicylates < 25.0 mg/L (30.0-100.0) L 04/27/18 20:18 Acetaminophen < 10.0 ug/mL (10.0-30.0) L 04/27/18 20:18 Ethyl Alcohol < 10 mg/dL (0-10) 04/27/18 20:18 RPR NONREACTIVE (NONREACTIVE) 04/27/18 20:18 - Physical Exam Vitals and I&O: Vital Signs Temp 97.2 F 05/02/18 05:41 Pulse 68 05/02/18 08:44 Resp 20 05/02/18 05:41 BP 128/68 05/02/18 08:44 Pulse Ox 97 05/02/18 05:41 Intake & Output 05/01/18 05/02/18 05/02/18 18:59 06:59 18:59 Intake Total 1200 240 Balance 1200 240 Intake: Oral 1200 240 Other: # Voids 3 2 # Bowel Movements 1 Active Medications: Current Medications Acetaminophen (Tylenol) 650 mg PO Q6HR PRN PRN Reason: Pain or Fever >101 Stop: 06/26/18 22:37 Acetaminophen/Hydrocodone Bitart ([place] 5mg/325mg) 1 tab PO Q4HR PRN PRN Reason: Pain (Severe) Stop: 06/26/18 22:37 Artificial Tears (Artificial Tears Ophth Soln) 1 drop EACH EYE BID [facility] Stop: 06/27/18 08:59 Last Admin: 05/02/18 08:45 Dose: 1 drop Aspirin (Aspirin Chewable) 81 mg PO DAILY [facility] Stop: 06/27/18 08:59 Last Admin: 05/02/18 08:44 Dose: 81 mg Bisacodyl (Dulcolax 10 Mg Supp) 10 mg RC DAILY PRN PRN Reason: Constipation Stop: 06/26/18 22:37 Buspirone HCl (Buspar) 5 mg PO TID [facility]; Protocol Stop: 06/27/18 08:59 Last Admin: 05/02/18 13:06 Dose: 5 mg Clopidogrel Bisulfate (Plavix) 75 mg PO DAILY [facility] Stop: 06/27/18 08:59 Last Admin: 05/02/18 08:44 Dose: 75 mg Docusate Sodium (Colace) 100 mg PO BID [facility] Stop: 06/27/18 08:59 Last Admin: 05/02/18 08:44 Dose: 100 mg Escitalopram Oxalate (Lexapro) 10 mg PO DAILY [facility]; Protocol Stop: 06/27/18 08:59 Last Admin: 05/02/18 08:44 Dose: 10 mg Gabapentin (Neurontin) 300 mg PO DAILY [facility] Stop: 06/27/18 08:59 Last Admin: 05/02/18 08:44 Dose: 300 mg Glipizide (Glucotrol) 5 mg PO BID [facility] Stop: 06/27/18 08:59 Last Admin: 05/02/18 08:44 Dose: 5 mg Guaifenesin/Dextromethorphan (Robitussin Dm) 10 ml PO Q4HR PRN PRN Reason: Cough Stop: 06/26/18 22:37 Insulin Aspart (Novolog Insulin Sliding Scale) 0 units SUBQ ACHS [facility]; Protocol Stop: 06/27/18 07:29 Last Admin: 05/02/18 11:55 Dose: 2 units Insulin Detemir (Levemir Insulin) 20 units SUBQ Q12HR [facility] Stop: 06/27/18 08:59 Last Admin: 05/02/18 08:45 Dose: 20 unit Lorazepam (Ativan) 0.5 mg PO Q4HR PRN; Protocol PRN Reason: Anxiety/agitation Stop: 05/28/18 00:04 Magnesium Hydroxide (Milk Of Magnesia) 30 ml PO DAILY PRN PRN Reason: Constipation Stop: 06/26/18 22:37 Metoprolol Tartrate (Lopressor) 25 mg PO Q12HR [facility] Stop: 06/27/18 08:59 Last Admin: 05/02/18 08:44 Dose: 25 mg Miscellaneous (Ramelteon [Rozerem]) 8 mg PO HS [facility] Stop: 06/27/18 20:59 Mupirocin (Bactroban Oint) 1 appl NS BID [facility] Stop: 05/05/18 09:01 Last Admin: 05/02/18 08:43 Dose: 1 appl Nitroglycerin (Nitrostat) 0.4 mg SL Q5MIN PRN PRN Reason: Chest Pain Stop: 06/26/18 22:37 Nitroglycerin (Transderm-Nitro) 1 patch TD DAILY [facility] Stop: 06/27/18 08:59 Last Admin: 05/02/18 08:43 Dose: 1 patch Pantoprazole Sodium (Protonix) 40 mg PO QDAC [facility] Stop: 06/27/18 07:29 Last Admin: 05/02/18 06:55 Dose: 40 mg Quetiapine Fumarate (Seroquel) 12.5 mg PO HS [facility]; Protocol Stop: 07/01/18 20:59 Simvastatin (Zocor) 20 mg PO HS [facility]; Protocol Stop: 06/27/18 20:59 Last Admin: 05/01/18 20:41 Dose: 20 mg Zolpidem Tartrate (Ambien) 5 mg PO HS PRN PRN Reason: Insomnia Stop: 06/26/18 22:28 General: Alert, No acute distress HEENT: Atraumatic Neck: Supple Cardiovascular: Regular rate Lungs: Clear to auscultation Abdomen: Bowel sounds, Soft Extremities: Other (No edema) Neurological: Other (Non ambulatory) Skin: Other (Warm and dry) Psych/Mental Status: Other (Calm, confused, not oriented) Assessment/Plan - Assessment Assessment: Patient is awake, alert, calm, in no acute distress. Creatinine increasing. Dx: increased in agitation DM, CKD, HTN, Dislipemia, Dementia, Schizophenia. - Plan Plan: Patient under psychiatry care, continue with SNF meds. Will increased water intake. Will continue to monitor. Nutritional Asmnt/Malnutr-PDOC - Dietary Evaluation Malnutrition Findings (Please click <Entered> for more info): Nutritional Asmnt/Malnutrition Start: 04/28/18 15: 10 Text: Status: Complete Freq: Protocol: Document 04/28/18 15:14 LCHENG (Rec: 04/28/18 15:42 [email or web address]) Nutritional Asmnt/Malnutrition Patient General Information Nutritional Screening High Risk Diagnosis psychosis Pertinent Medical Hx/Surgical Hx CAD, CHF, HTN, dementia, schizophrenia, DM, muscle atrophy, weakness Subjective Information BS 229 at admission noted. Per nurse, pt consumed about 80% of lunch today. Current Diet Order/ Nutrition Support CCHO, low sodium, mech chopped Pertinent Medications colace, glucotrol, novolog, levemir, protonix Pertinent Labs 04/27 Na 135, BUN 34, Cr 1.4, glucose 229 Nutritional Hx/Data Height 1.78 m Height (Calculated Centimeters) 177.8 Current Weight (lbs) 112.037 kg Weight (Calculated Kilograms) 112.0 Weight (Calculated Grams) 348095.3 [place] Body Weight 150 Body Mass Index (BMI) 35.4 Weight Status Obese GI Symptoms GI Symptoms None Last BM none Difficult in: None Skin Integrity/Comment: intact Estimated Nutritional Goals BEE in Kcals: Adj wt of IBW Calories/Kcals/Kg 23-27 Kcals Calculated 0158-5374 Protein: Adj wt of IBW Protein g/k Protein Calculated 79 Fluid: ml 1794-2133ml (1ml/kcal) Nutritional Problem 1. Problem Problem altered nutrition related lab Etiology hx of DM Signs/Symptoms: glucose 229 Malnutrition Alert Is there a minimum of two criteria No selected? Query Text:Check all the applicable criteria. A minimum of two criteria are recommended for diagnosis of either severe or non-severe malnutrition. Malnutrition Related to Morbid Obesity Malnutrition related to morbid obesity No Intervention/Recommendation Comments 1. Continue with low sodium [facility] soft chopped diet as ordered. 2. Monitor PO intake, wt, labs and skin integrity 3. F/U as moderate risk in 3-5 days, 05/01-05/03 Expected Outcomes/Goals Expected Outcomes/Goals 1. PO intake to meet at least 75% of nutritional needs. 2. Wt stability, skin to remain intact, labs to approach WNL.
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
[2018-05-03 06:55] LABS: % BASOPHILS 1.4 % (0.0-2.0); % EOSINOPHILS 3.3 % (0.0-5.0); % LYMPHOCYTES 33.9 % (20.0-50.0); % MONOCYTES 8.5 % (2.0-10.0); % NEUTROPHILS 52.9 % (40.0-80.0); BASOPHILE ABSOLUTE 0.1 Th/cumm (0-0.2); EOSINOPHILE ABSOLUTE 0.3 Th/cmm (0.1-0.4); HEMATOCRIT 34.7 % (41.0-60); HEMOGLOBIN 11.4 gm/dL (12-16); LYMPHOCYTE ABSOLUTE 2.8 Th/cmm (1.5-3.0); MEAN CELL VOLUME 87.7 fl (81-100); MEAN CORPUSCULAR HEMOGLOBIN 28.9 pg (27.0-31.0); MEAN CORPUSCULAR HGB CONC 32.9 pg (28.0-36.0); MEAN PLATELET VOLUME 6.7 fl; MONOCYTE ABSOLUTE 0.7 Th/cmm (0.3-1.0); NEUTROPHILE ABSOLUTE 4.5 Th/cmm (1.8-8.0); PLATELET COUNT 241 Th/cmm (150-400); RED BLOOD COUNT 3.96 Mil/cmm (3.80-5.20); RED CELL DISTRIBUTION WIDTH 14.2 % (11.5-20.0); WHITE BLOOD COUNT 8.4 Th/cmm (4.8-10.8)
[2018-05-03] MEDS: Pantoprazole 40 mg EC Tab PO SCH (07:00)
[2018-05-03] MEDS: INSULIN ASPART SLIDING SCALE 100 UNITS/ML UNIT SUBQ SCH ×4 (07:00→20:45)
[2018-05-03 07:12] LABS: ALB/GLOB RATIO 0.7 (1.0-1.8); ALBUMIN 3.3 gm/dL (3.7-5.3); ALKALINE PHOSPHATASE 66 U/L (34-104); ANION GAP 10.9 (7.0-16.0); BILIRUBIN,TOTAL 0.5 mg/dL (0.3-1.0); BUN - UREA NITROGEN 34 mg/dL (7-25); CALCIUM SERUM 9.6 mg/dL (8.6-10.3); CARBON DIOXIDE 26.3 mEq/L (21.0-31.0); CHLORIDE 104 mEq/L (98-107); CHOLESTEROL 109 mg/dL (<200); CREATININE - SERUM 1.5 mg/dL (0.6-1.2); GLUCOSE 127 mg/dL (70-105); HDL -HIGH DENSITY LIPOPROTEIN 30 mg/dL (23-92); POTASSIUM SERUM 4.2 mEq/L (3.5-5.1); SGOT 19 U/L (13-39); SGPT/ALT 17 U/L (7-52); SODIUM SERUM 137 mEq/L (136-145); TRIGLYCERIDES 139 mg/dL (<150)
--- NOTE | 2018-05-03 08:48 | General Progress Note ---
Subjective - Review of Systems Service Date: 05/03/17 Subjective: I am fine Objective - Results Result Diagrams: 05/03/18 06:36 05/03/18 06:36 Recent Labs: Laboratory Last Values WBC 8.4 Th/cmm (4.8-10.8) 05/03/18 06:36 RBC 3.96 Mil/cmm (3.80-5.20) 05/03/18 06:36 Hgb 11.4 gm/dL (12-16) L 05/03/18 06:36 Hct 34.7 % (41.0-60) L 05/03/18 06:36 MCV 87.7 fl (81-100) 05/03/18 06:36 MCH 28.9 pg (27.0-31.0) 05/03/18 06:36 MCHC Differential 32.9 pg (28.0-36.0) 05/03/18 06:36 RDW 14.2 % (11.5-20.0) 05/03/18 06:36 Plt Count 241 Th/cmm (150-400) 05/03/18 06:36 MPV 6.7 fl 05/03/18 06:36 Neutrophils % 52.9 % (40.0-80.0) 05/03/18 06:36 Lymphocytes % 33.9 % (20.0-50.0) 05/03/18 06:36 Monocytes % 8.5 % (2.0-10.0) 05/03/18 06:36 Eosinophils % 3.3 % (0.0-5.0) 05/03/18 06:36 Basophils % 1.4 % (0.0-2.0) 05/03/18 06:36 Sodium 137 mEq/L (136-145) 05/03/18 06:36 Potassium 4.2 mEq/L (3.5-5.1) 05/03/18 06:36 Chloride 104 mEq/L (98-107) 05/03/18 06:36 Carbon Dioxide 26.3 mEq/L (21.0-31.0) 05/03/18 06:36 Anion Gap 10.9 (7.0-16.0) 05/03/18 06:36 BUN 34 mg/dL (7-25) H 05/03/18 06:36 Creatinine 1.5 mg/dL (0.6-1.2) H 05/03/18 06:36 Est GFR ( Amer) TNP 05/03/18 06:36 Est GFR (Non-Af Amer) TNP 05/03/18 06:36 BUN/Creatinine Ratio 22.7 05/03/18 06:36 Glucose 127 mg/dL (70-105) H 05/03/18 06:36 POC Glucose 128 MG/DL (70 - 105) H 05/03/18 06:04 Hemoglobin A1c % 7.4 % (4.0-6.0) H 04/27/18 20:18 Calcium 9.6 mg/dL (8.6-10.3) 05/03/18 06:36 Total Bilirubin 0.5 mg/dL (0.3-1.0) 05/03/18 06:36 AST 19 U/L (13-39) 05/03/18 06:36 ALT 17 U/L (7-52) 05/03/18 06:36 Alkaline Phosphatase 66 U/L (34-104) 05/03/18 06:36 Troponin I < 0.01 ng/mL (0.01-0.05) L 04/27/18 20:18 Total Protein 8.0 gm/dL (6.0-8.3) 05/03/18 06:36 Albumin 3.3 gm/dL (3.7-5.3) L 05/03/18 06:36 Globulin 4.7 gm/dL 05/03/18 06:36 Albumin/Globulin Ratio 0.7 (1.0-1.8) L 05/03/18 06:36 Triglycerides 139 mg/dL (<150) 05/03/18 06:36 Cholesterol 109 mg/dL (<200) 05/03/18 06:36 LDL Cholesterol Direct 28 mg/dL (75-193) L 05/03/18 06:36 HDL Cholesterol 30 mg/dL (23-92) 05/03/18 06:36 TSH 2.50 uIU/ml (0.34-5.60) 04/27/18 20:18 Salicylates < 25.0 mg/L (30.0-100.0) L 04/27/18 20:18 Acetaminophen < 10.0 ug/mL (10.0-30.0) L 04/27/18 20:18 Ethyl Alcohol < 10 mg/dL (0-10) 04/27/18 20:18 RPR NONREACTIVE (NONREACTIVE) 04/27/18 20:18 - Physical Exam Vitals and I&O: Vital Signs Temp 97.6 F 05/03/18 05:54 Pulse 57 05/03/18 05:54 Resp 18 05/03/18 05:54 BP 135/80 05/03/18 05:54 Pulse Ox 98 05/03/18 05:54 Intake & Output 05/02/18 05/03/18 05/03/18 18:59 06:59 18:59 Intake Total 1200 240 Balance 1200 240 Intake: Oral 1200 240 Other: # Voids 3 2 Active Medications: Current Medications Acetaminophen (Tylenol) 650 mg PO Q6HR PRN PRN Reason: Pain or Fever >101 Stop: 06/26/18 22:37 Acetaminophen/Hydrocodone Bitart ([place] 5mg/325mg) 1 tab PO Q4HR PRN PRN Reason: Pain (Severe) Stop: 06/26/18 22:37 Artificial Tears (Artificial Tears Ophth Soln) 1 drop EACH EYE BID [facility] Stop: 06/27/18 08:59 Last Admin: 05/02/18 17:08 Dose: 1 drop Aspirin (Aspirin Chewable) 81 mg PO DAILY [facility] Stop: 06/27/18 08:59 Last Admin: 05/02/18 08:44 Dose: 81 mg Bisacodyl (Dulcolax 10 Mg Supp) 10 mg RC DAILY PRN PRN Reason: Constipation Stop: 06/26/18 22:37 Buspirone HCl (Buspar) 5 mg PO TID [facility]; Protocol Stop: 06/27/18 08:59 Last Admin: 05/02/18 21:06 Dose: 5 mg Clopidogrel Bisulfate (Plavix) 75 mg PO DAILY [facility] Stop: 06/27/18 08:59 Last Admin: 05/02/18 08:44 Dose: 75 mg Docusate Sodium (Colace) 100 mg PO BID [facility] Stop: 06/27/18 08:59 Last Admin: 05/02/18 17:07 Dose: 100 mg Escitalopram Oxalate (Lexapro) 10 mg PO DAILY [facility]; Protocol Stop: 06/27/18 08:59 Last Admin: 05/02/18 08:44 Dose: 10 mg Gabapentin (Neurontin) 300 mg PO DAILY [facility] Stop: 06/27/18 08:59 Last Admin: 05/02/18 08:44 Dose: 300 mg Glipizide (Glucotrol) 5 mg PO BID [facility] Stop: 06/27/18 08:59 Last Admin: 05/02/18 17:07 Dose: 5 mg Guaifenesin/Dextromethorphan (Robitussin Dm) 10 ml PO Q4HR PRN PRN Reason: Cough Stop: 06/26/18 22:37 Insulin Aspart (Novolog Insulin Sliding Scale) 0 units SUBQ ACHS [facility]; Protocol Stop: 06/27/18 07:29 Last Admin: 05/03/18 07:00 Dose: Not Given Insulin Detemir (Levemir Insulin) 20 units SUBQ Q12HR [facility] Stop: 06/27/18 08:59 Last Admin: 05/02/18 21:07 Dose: Not Given Lorazepam (Ativan) 0.5 mg PO Q4HR PRN; Protocol PRN Reason: Anxiety/agitation Stop: 05/28/18 00:04 Magnesium Hydroxide (Milk Of Magnesia) 30 ml PO DAILY PRN PRN Reason: Constipation Stop: 06/26/18 22:37 Metoprolol Tartrate (Lopressor) 25 mg PO Q12HR [facility] Stop: 06/27/18 08:59 Last Admin: 05/02/18 21:07 Dose: 25 mg Miscellaneous (Ramelteon [Rozerem]) 8 mg PO HS [facility] Stop: 06/27/18 20:59 Mupirocin (Bactroban Oint) 1 appl NS BID [facility] Stop: 05/05/18 09:01 Last Admin: 05/02/18 17:08 Dose: 1 appl Nitroglycerin (Nitrostat) 0.4 mg SL Q5MIN PRN PRN Reason: Chest Pain Stop: 06/26/18 22:37 Nitroglycerin (Transderm-Nitro) 1 patch TD DAILY [facility] Stop: 06/27/18 08:59 Last Admin: 05/02/18 08:43 Dose: 1 patch Pantoprazole Sodium (Protonix) 40 mg PO QDAC [facility] Stop: 06/27/18 07:29 Last Admin: 05/03/18 07:00 Dose: 40 mg Quetiapine Fumarate (Seroquel) 12.5 mg PO HS [facility]; Protocol Stop: 07/01/18 20:59 Last Admin: 05/02/18 21:08 Dose: 12.5 mg Simvastatin (Zocor) 20 mg PO HS [facility]; Protocol Stop: 06/27/18 20:59 Last Admin: 05/02/18 21:08 Dose: 20 mg Zolpidem Tartrate (Ambien) 5 mg PO HS PRN PRN Reason: Insomnia Stop: 06/26/18 22:28 General: Alert, No acute distress HEENT: Atraumatic Neck: Supple Cardiovascular: Regular rate Lungs: Clear to auscultation Abdomen: Bowel sounds, Soft Extremities: Other (No edema) Neurological: Other (Non ambulatory) Skin: Other (Warm and dry) Psych/Mental Status: Other (Calm, confused, not oriented) Assessment/Plan - Assessment Assessment: Patient is awake, alert, calm, in no acute distress. Creatinine still high. Dx: increased in agitation DM, CKD, HTN, Dislipemia, Dementia, Schizophenia. - Plan Plan: Patient under psychiatry care, continue with SNF meds. Will increased water intake. Will continue to monitor. Nutritional Asmnt/Malnutr-PDOC - Dietary Evaluation Malnutrition Findings (Please click <Entered> for more info): Nutritional Asmnt/Malnutrition Start: 04/28/18 15: 10 Text: Status: Complete Freq: Protocol: Document 04/28/18 15:14 LCHENG (Rec: 04/28/18 15:42 [email or web address] [id number]) Nutritional Asmnt/Malnutrition Patient General Information Nutritional Screening High Risk Diagnosis psychosis Pertinent Medical Hx/Surgical Hx CAD, CHF, HTN, dementia, schizophrenia, DM, muscle atrophy, weakness Subjective Information BS 229 at admission noted. Per nurse, pt consumed about 80% of lunch today. Current Diet Order/ Nutrition Support CCHO, low sodium, mech chopped Pertinent Medications colace, glucotrol, novolog, levemir, protonix Pertinent Labs 04/27 Na 135, BUN 34, Cr 1.4, glucose 229 Nutritional Hx/Data Height 1.78 m Height (Calculated Centimeters) 177.8 Current Weight (lbs) 112.037 kg Weight (Calculated Kilograms) 112.0 Weight (Calculated Grams) 697820.3 [place] Body Weight 150 Body Mass Index (BMI) 35.4 Weight Status Obese GI Symptoms GI Symptoms None Last BM none Difficult in: None Skin Integrity/Comment: intact Estimated Nutritional Goals BEE in Kcals: Adj wt of IBW Calories/Kcals/Kg 23-27 Kcals Calculated 4086-3057 Protein: Adj wt of IBW Protein g/k Protein Calculated 79 Fluid: ml 1794-2133ml (1ml/kcal) Nutritional Problem 1. Problem Problem altered nutrition related lab Etiology hx of DM Signs/Symptoms: glucose 229 Malnutrition Alert Is there a minimum of two criteria No selected? Query Text:Check all the applicable criteria. A minimum of two criteria are recommended for diagnosis of either severe or non-severe malnutrition. Malnutrition Related to Morbid Obesity Malnutrition related to morbid obesity No Intervention/Recommendation Comments 1. Continue with low sodium [facility] soft chopped diet as ordered. 2. Monitor PO intake, wt, labs and skin integrity 3. F/U as moderate risk in 3-5 days, 05/01-05/03 Expected Outcomes/Goals Expected Outcomes/Goals 1. PO intake to meet at least 75% of nutritional needs. 2. Wt stability, skin to remain intact, labs to approach WNL.
[2018-05-03] MEDS: Aspirin 81mg Chewable Tab PO SCH (10:14)
[2018-05-03] MEDS: Polyvinyl Alcohol Ophth Soln 15 mL Bottle EACH EYE SCH ×2 (10:14→17:12)
[2018-05-03] MEDS: Multivitamin w/ Minerals Tab PO SCH (10:15)
[2018-05-03] MEDS: Insulin Detemir 100 units/mL 10mL Vial SUBQ SCH ×2 (10:15→20:46)
[2018-05-03] MEDS: Nitroglycerin 0.1 mg/hr Tdm TD SCH (10:16)
--- NOTE | 2018-05-04 00:01 | Progress Notes ---
DATE: 05/03/2018 SUBJECTIVE: Staff was spoken to. The patient is interviewed. Mood is noted to be less irritable. Affect is appropriate. The patient is denying any command hallucinations. The patient is reporting her sleep and appetite have been improving. No side effects to the medications are noted. ASSESSMENT: The patient is stabilizing. PLAN: To discharge the patient today for followup on outpatient basis. JOB# [id number]
[2018-05-04] MEDS: Pantoprazole 40 mg EC Tab PO SCH (06:47)
[2018-05-04] MEDS: INSULIN ASPART SLIDING SCALE 100 UNITS/ML UNIT SUBQ SCH ×2 (06:48→12:07)
[2018-05-04] MEDS: Insulin Detemir 100 units/mL 10mL Vial SUBQ SCH (09:32)
[2018-05-04] MEDS: Nitroglycerin 0.1 mg/hr Tdm TD SCH (10:02)
[2018-05-04] MEDS: Multivitamin w/ Minerals Tab PO SCH (10:07)
[2018-05-04] MEDS: Aspirin 81mg Chewable Tab PO SCH (10:07)
[2018-05-04] MEDS: Polyvinyl Alcohol Ophth Soln 15 mL Bottle EACH EYE SCH (10:12)
--- NOTE | 2018-05-04 12:31 | General Progress Note ---
Subjective - Review of Systems Service Date: 05/04/18 Subjective: I am fine Objective - Results Result Diagrams: 05/03/18 06:36 05/03/18 06:36 Recent Labs: Laboratory Last Values WBC 8.4 Th/cmm (4.8-10.8) 05/03/18 06:36 RBC 3.96 Mil/cmm (3.80-5.20) 05/03/18 06:36 Hgb 11.4 gm/dL (12-16) L 05/03/18 06:36 Hct 34.7 % (41.0-60) L 05/03/18 06:36 MCV 87.7 fl (81-100) 05/03/18 06:36 MCH 28.9 pg (27.0-31.0) 05/03/18 06:36 MCHC Differential 32.9 pg (28.0-36.0) 05/03/18 06:36 RDW 14.2 % (11.5-20.0) 05/03/18 06:36 Plt Count 241 Th/cmm (150-400) 05/03/18 06:36 MPV 6.7 fl 05/03/18 06:36 Neutrophils % 52.9 % (40.0-80.0) 05/03/18 06:36 Lymphocytes % 33.9 % (20.0-50.0) 05/03/18 06:36 Monocytes % 8.5 % (2.0-10.0) 05/03/18 06:36 Eosinophils % 3.3 % (0.0-5.0) 05/03/18 06:36 Basophils % 1.4 % (0.0-2.0) 05/03/18 06:36 Sodium 137 mEq/L (136-145) 05/03/18 06:36 Potassium 4.2 mEq/L (3.5-5.1) 05/03/18 06:36 Chloride 104 mEq/L (98-107) 05/03/18 06:36 Carbon Dioxide 26.3 mEq/L (21.0-31.0) 05/03/18 06:36 Anion Gap 10.9 (7.0-16.0) 05/03/18 06:36 BUN 34 mg/dL (7-25) H 05/03/18 06:36 Creatinine 1.5 mg/dL (0.6-1.2) H 05/03/18 06:36 Est GFR ( Amer) TNP 05/03/18 06:36 Est GFR (Non-Af Amer) TNP 05/03/18 06:36 BUN/Creatinine Ratio 22.7 05/03/18 06:36 Glucose 127 mg/dL (70-105) H 05/03/18 06:36 POC Glucose 124 MG/DL (70 - 105) H 05/04/18 06:04 Hemoglobin A1c % 7.4 % (4.0-6.0) H 04/27/18 20:18 Calcium 9.6 mg/dL (8.6-10.3) 05/03/18 06:36 Total Bilirubin 0.5 mg/dL (0.3-1.0) 05/03/18 06:36 AST 19 U/L (13-39) 05/03/18 06:36 ALT 17 U/L (7-52) 05/03/18 06:36 Alkaline Phosphatase 66 U/L (34-104) 05/03/18 06:36 Troponin I < 0.01 ng/mL (0.01-0.05) L 04/27/18 20:18 Total Protein 8.0 gm/dL (6.0-8.3) 05/03/18 06:36 Albumin 3.3 gm/dL (3.7-5.3) L 05/03/18 06:36 Globulin 4.7 gm/dL 05/03/18 06:36 Albumin/Globulin Ratio 0.7 (1.0-1.8) L 05/03/18 06:36 Triglycerides 139 mg/dL (<150) 05/03/18 06:36 Cholesterol 109 mg/dL (<200) 05/03/18 06:36 LDL Cholesterol Direct 28 mg/dL (75-193) L 05/03/18 06:36 HDL Cholesterol 30 mg/dL (23-92) 05/03/18 06:36 TSH 2.50 uIU/ml (0.34-5.60) 04/27/18 20:18 Salicylates < 25.0 mg/L (30.0-100.0) L 04/27/18 20:18 Acetaminophen < 10.0 ug/mL (10.0-30.0) L 04/27/18 20:18 Ethyl Alcohol < 10 mg/dL (0-10) 04/27/18 20:18 RPR NONREACTIVE (NONREACTIVE) 04/27/18 20:18 - Physical Exam Vitals and I&O: Vital Signs Temp 97.9 F 05/04/18 04:24 Pulse 78 05/04/18 10:06 Resp 18 05/04/18 04:24 BP 126/76 05/04/18 10:06 Pulse Ox 97 05/04/18 04:24 Intake & Output 05/03/18 05/04/18 05/04/18 18:59 06:59 18:59 Intake Total 240 Balance 240 Intake: Oral 240 Other: # Voids 2 # Bowel Movements 1 Active Medications: Current Medications Acetaminophen (Tylenol) 650 mg PO Q6HR PRN PRN Reason: Pain or Fever >101 Stop: 06/26/18 22:37 Acetaminophen/Hydrocodone Bitart ([place] 5mg/325mg) 1 tab PO Q4HR PRN PRN Reason: Pain (Severe) Stop: 06/26/18 22:37 Artificial Tears (Artificial Tears Ophth Soln) 1 drop EACH EYE BID [facility] Stop: 06/27/18 08:59 Last Admin: 05/04/18 10:12 Dose: 1 drop Aspirin (Aspirin Chewable) 81 mg PO DAILY [facility] Stop: 06/27/18 08:59 Last Admin: 05/04/18 10:07 Dose: 81 mg Bisacodyl (Dulcolax 10 Mg Supp) 10 mg RC DAILY PRN PRN Reason: Constipation Stop: 06/26/18 22:37 Buspirone HCl (Buspar) 5 mg PO TID [facility]; Protocol Stop: 06/27/18 08:59 Last Admin: 05/04/18 10:05 Dose: 5 mg Clopidogrel Bisulfate (Plavix) 75 mg PO DAILY [facility] Stop: 06/27/18 08:59 Last Admin: 05/04/18 10:05 Dose: 75 mg Docusate Sodium (Colace) 100 mg PO BID [facility] Stop: 06/27/18 08:59 Last Admin: 05/04/18 10:07 Dose: 100 mg Escitalopram Oxalate (Lexapro) 10 mg PO DAILY [facility]; Protocol Stop: 06/27/18 08:59 Last Admin: 05/04/18 10:06 Dose: 10 mg Gabapentin (Neurontin) 300 mg PO DAILY [facility] Stop: 06/27/18 08:59 Last Admin: 05/04/18 10:05 Dose: 300 mg Glipizide (Glucotrol) 5 mg PO BID [facility] Stop: 06/27/18 08:59 Last Admin: 05/04/18 10:08 Dose: 5 mg Guaifenesin/Dextromethorphan (Robitussin Dm) 10 ml PO Q4HR PRN PRN Reason: Cough Stop: 06/26/18 22:37 Insulin Aspart (Novolog Insulin Sliding Scale) 0 units SUBQ ACHS [facility]; Protocol Stop: 06/27/18 07:29 Last Admin: 05/04/18 12:07 Dose: 4 units Insulin Detemir (Levemir Insulin) 20 units SUBQ Q12HR [facility] Stop: 06/27/18 08:59 Last Admin: 05/04/18 09:32 Dose: Not Given Lorazepam (Ativan) 0.5 mg PO Q4HR PRN; Protocol PRN Reason: Anxiety/agitation Stop: 05/28/18 00:04 Magnesium Hydroxide (Milk Of Magnesia) 30 ml PO DAILY PRN PRN Reason: Constipation Stop: 06/26/18 22:37 Metoprolol Tartrate (Lopressor) 25 mg PO Q12HR [facility] Stop: 06/27/18 08:59 Last Admin: 05/04/18 10:06 Dose: 25 mg Miscellaneous (Ramelteon [Rozerem]) 8 mg PO HS [facility] Stop: 06/27/18 20:59 Mupirocin (Bactroban Oint) 1 appl NS BID [facility] Stop: 05/05/18 09:01 Last Admin: 05/04/18 10:12 Dose: 1 appl Nitroglycerin (Nitrostat) 0.4 mg SL Q5MIN PRN PRN Reason: Chest Pain Stop: 06/26/18 22:37 Nitroglycerin (Transderm-Nitro) 1 patch TD DAILY [facility] Stop: 06/27/18 08:59 Last Admin: 05/04/18 10:02 Dose: 1 patch Pantoprazole Sodium (Protonix) 40 mg PO QDAC [facility] Stop: 06/27/18 07:29 Last Admin: 05/04/18 06:47 Dose: 40 mg Quetiapine Fumarate (Seroquel) 12.5 mg PO HS [facility]; Protocol Stop: 07/01/18 20:59 Last Admin: 05/03/18 20:55 Dose: 12.5 mg Simvastatin (Zocor) 20 mg PO HS [facility]; Protocol Stop: 06/27/18 20:59 Last Admin: 05/03/18 20:54 Dose: 20 mg Zolpidem Tartrate (Ambien) 5 mg PO HS PRN PRN Reason: Insomnia Stop: 06/26/18 22:28 General: Alert, No acute distress HEENT: Atraumatic Neck: Supple Cardiovascular: Regular rate Lungs: Clear to auscultation Abdomen: Bowel sounds, Soft Extremities: Other (No edema) Neurological: Other (Non ambulatory) Skin: Other (Warm and dry) Psych/Mental Status: Other (Calm, confused, not oriented) Assessment/Plan - Assessment Assessment: Patient is awake, alert, calm, in no acute distress. Creatinine still high. Dx: increased in agitation DM, CKD, HTN, Dislipemia, Dementia, Schizophenia. - Plan Plan: Patient under psychiatry care, continue with SNF meds. Will increased water intake. Will continue to monitor. Nutritional Asmnt/Malnutr-PDOC - Dietary Evaluation Malnutrition Findings (Please click <Entered> for more info): Nutritional Asmnt/Malnutrition Start: 04/28/18 15: 10 Text: Status: Complete Freq: Protocol: Document 04/28/18 15:14 LCHENG (Rec: 04/28/18 15:42 [email or web address] [id number]) Nutritional Asmnt/Malnutrition Patient General Information Nutritional Screening High Risk Diagnosis psychosis Pertinent Medical Hx/Surgical Hx CAD, CHF, HTN, dementia, schizophrenia, DM, muscle atrophy, weakness Subjective Information BS 229 at admission noted. Per nurse, pt consumed about 80% of lunch today. Current Diet Order/ Nutrition Support CCHO, low sodium, mech chopped Pertinent Medications colace, glucotrol, novolog, levemir, protonix Pertinent Labs 04/27 Na 135, BUN 34, Cr 1.4, glucose 229 Nutritional Hx/Data Height 1.78 m Height (Calculated Centimeters) 177.8 Current Weight (lbs) 112.037 kg Weight (Calculated Kilograms) 112.0 Weight (Calculated Grams) 826961.3 [place] Body Weight 150 Body Mass Index (BMI) 35.4 Weight Status Obese GI Symptoms GI Symptoms None Last BM none Difficult in: None Skin Integrity/Comment: intact Estimated Nutritional Goals BEE in Kcals: Adj wt of IBW Calories/Kcals/Kg 23-27 Kcals Calculated [id number] Protein: Adj wt of IBW Protein g/k Protein Calculated 79 Fluid: ml 1794-2133ml (1ml/kcal) Nutritional Problem 1. Problem Problem altered nutrition related lab Etiology hx of DM Signs/Symptoms: glucose 229 Malnutrition Alert Is there a minimum of two criteria No selected? Query Text:Check all the applicable criteria. A minimum of two criteria are recommended for diagnosis of either severe or non-severe malnutrition. Malnutrition Related to Morbid Obesity Malnutrition related to morbid obesity No Intervention/Recommendation Comments 1. Continue with low sodium [facility] soft chopped diet as ordered. 2. Monitor PO intake, wt, labs and skin integrity 3. F/U as moderate risk in 3-5 days, 05/01-05/03 Expected Outcomes/Goals Expected Outcomes/Goals 1. PO intake to meet at least 75% of nutritional needs. 2. Wt stability, skin to remain intact, labs to approach WNL.
--- NOTE | 2018-05-04 18:55 | Progress Notes ---
DATE: 05/04/2018 PSYCHIATRIC PROGRESS NOTE SUBJECTIVE: Staff was spoken to. The patient is interviewed. Mood is noted to be irritable. Affect is constricted. The patient denies any command hallucinations today. Insight and judgment are noted to be improving. Impulse control seems to be fair. No side effects to the medications are noted. Sleep and appetite also noted to be fair. ASSESSMENT: The patient is stabilizing. PLAN: To discharge the patient today for followup. The patient is reported to not accepting to the [facility] and the patient is going to be sent to a different alf facility. JOB# [id number]
== END 2018-05-04 13:00 | DRG 885 ==
LOC: ER 19:56 → GERO2 21:10
PROVIDERS: ADMIT Psychiatry & Neurology Psychiatry; ATTEND Psychiatry & Neurology Psychiatry
DX: F31.5 Bipolar disorder, current episode depressed, severe, with psychotic features (principal); N18.9 Chronic kidney disease, unspecified; E11.65 Type 2 diabetes mellitus with hyperglycemia; F03.91 Unspecified dementia, unspecified severity, with behavioral disturbance; E87.1 Hypo-osmolality and hyponatremia; I13.0 Hypertensive heart and chronic kidney disease with heart failure and stage 1 through stage 4 chronic kidney disease, or unspecified chronic kidney disease; I25.10 Atherosclerotic heart disease of native coronary artery without angina pectoris; F41.9 Anxiety disorder, unspecified; I50.9 Heart failure, unspecified; E78.5 Hyperlipidemia, unspecified; E11.22 Type 2 diabetes mellitus with diabetic chronic kidney disease; Z88.0 Allergy status to penicillin; Z88.1 Allergy status to other antibiotic agents; Z82.49 Family history of ischemic heart disease and other diseases of the circulatory system; Z71.89 Other specified counseling; I69.344 Monoplegia of lower limb following cerebral infarction affecting left non-dominant side; Z95.1 Presence of aortocoronary bypass graft; Z79.899 Other long term (current) drug therapy; Z79.82 Long term (current) use of aspirin
CPT/HCPCS: 36415-UA; 80053-TC; 80061-TC; 80320-TC; 80329-TC; 82948-90; 83036-90; 84443-TC; 84484-TC; 85025-TC; 86592-TC; 93005; J1815; Z7610